=== PATIENT | female | born 1940 | race Caucasian/White ===

== ENCOUNTER 2024-03-10 11:11 | Emergency (ER) | payer OTHER, SELFPAY ==
[2024-03-10 11:16] VITALS: BP 127/66; BMI 18.9
[2024-03-10 11:36] LABS: % Basophils 0.4 % (0-2); % Eosinophils 0.3 % (0-6); % Immature Granulocytes 0.4 % (0-0.5); % Lymphocytes 21.9 % (20.5-51.1); % Monocytes 8.4 % (1.7-9.3); % Neutrophils 68.6 % (42.2-75.2); Absolute Lymphocytes 1.7 10^3/uL (1.2-3.4); Absolute Monocytes 0.6 10^3/uL (0.1-0.6); Absolute Neutrophils 5.2 10^3/uL (1.4-6.5); Hematocrit 41.8 % (37.0-47.0); Mean Corp Hgb Conc. 33.5 g/dL (33.0-37.0); Mean Corpuscular Hgb 31.3 pg (27.0-31.0); Mean Corpuscular Volume 93.3 fL (81.0-99.0); Mean Platelet Volume 9.7 fL (7.4-10.4); Nucleated Red Blood Cells % 0 %; Platelet Count 176 10^3/uL (130-400); Red Blood Cell Count 4.48 10^6/uL (4.20-5.40); Red Cell Dist. Width 13.2 % (11.5-14.5); White Blood Cell Count 7.6 10^3/uL (4.8-10.8)
[2024-03-10 11:46] LABS: ALT (SGPT) 18 U/L (0-35); AST (SGOT) 52 U/L (14-36); Albumin 4.2 g/dl (3.5-5.0); Alkaline Phosphatase 66 U/L (38-126); Blood Urea Nitrogen 22 mg/dl (7-17); Calcium 9.4 mg/dl (8.4-10.2); Carbon Dioxide 30 mmol/L (22-30); Chloride 104 mmol/L (98-107); Estimated Creatinine Clearance 58 ml/min; Glucose 98 mg/dl (70-99); Potassium 3.4 mmol/L (3.5-5.1); Sodium 138 mmol/L (135-145); Total Bilirubin 2.5 mg/dl (0.2-1.3); Total Protein 6.2 g/dl (6.3-8.2); eGFR > 60.00
--- NOTE | 2024-03-10 11:46 | ED.GENMED ---
History of Present Illness
General
Chief Complaint: Fall
Source: patient and records
Exam Limitations: none
Time Seen by Provider: 03/10/24 11:16
Nursing documentation reviewed up to this point in time: agreed with
Travel History
Have you had any contact with someone who has COVID-19?: No
Do you have any symptoms of coronavirus? Fever > 100 degrees, chills, cough, shortness of breath, sore throat, loss of taste or smell, muscle aches, or headache?: No
History of Present Illness
History of Present Illness:
83-year-old female via EMS apparently found on the ground sitting on her buttock at her apartment she is not sure how she got down she also she is hungry would like to go home she has been admitted previously [facility]
with RVR looks like she is on Eliquis, patient has no complaints physically no headache no chest pain or shortness of breath no fever chills no trouble urinating
prior records reviewed, in summary
Presented 08/09/2023 with unwitnessed fall
rhabdomyolysis, CPK 6600
UTI
Paroxysmal atrial fibrillation with rapid ventricular response 08/09/2023, appears to be new diagnosis
Non-MD troponin elevation, 0.145
Abnl LFTs
CLL (chronic lymphocytic leukemia) in remission, Dr. Zeng
GERD
Osteoporosis
DJD
Hyperparathyroidism
status post partial parathyroidectomy 2019Glaucoma with cataracts lens placements, extractions
Late onset Alzheimer dementia
Osteoporosis
Dyslipidemia
Urinary incontinence
Various cosmetic surgeries
Phy Exam
Physical Exam
Physical Exam:
Physical Exam
General: no apparent distress, not acutely ill
Neck: No tongue bite no posterior neck pain question subtle left facial
Heart: Regular
Lungs: no acute respiratory distress. clear bilaterally
Abdomen: Nontender
Neuro: Oriented x 3 moves all extremities
Skin: no rash
Psychiatric: well kept. interactive and cooperative
Extremities: No pain with range of motion of the hips
Course
Orders/Labs/Results
Orders:
Orders
03/10/24 11:21
Complete Blood Count/With Diff Urgent
Comprehensive Metabolic Panel Urgent
Creatine Phosphokinase Urgent
Comment: ADDED
Troponin I Urgent
03/10/24 11:24
EKG [Electrocardiogram (*1)] Urgent
Reason for Study: Vertigo / Dizzy
EKG- Treatment ONCE
03/10/24 11:40
CT Cervical Spine W/o Iv Contr Urgent
Comment:
Reason For Exam: fall
CT Head W/o Iv Contrast Urgent
Comment:
Reason For Exam: ? trauma
03/10/24 11:45
CR Chest - 2 Views Urgent
Comment:
Reason For Exam: found down
03/10/24 11:47
Urinalysis Reflex To Culture Urgent
03/10/24 11:48
Add On- LAB Urgent
Tests Added?: cpk
Abnormal Lab Results
03/10/24
11:21
MCH 31.3 H pg
(27.0-31.0)
Potassium 3.4 L mmol/L
(3.5-5.1)
BUN 22 H mg/dl
(7-17)
Total Bilirubin 2.5 H mg/dl
(0.2-1.3)
AST 52 H U/L
(14-36)
Creatine Kinase 1370 H U/L
(30-135)
Total Protein 6.2 L g/dl
(6.3-8.2)
03/10/24 11:21
03/10/24 11:21
Vital Signs
Initial and Last Documented VS:
Initial Vital Signs
Temp Pulse Resp Pulse Ox
98.4 F 81 18 95
03/10/24 11:14 03/10/24 11:14 03/10/24 11:14 03/10/24 11:14
Last Documented Vital Signs
Temp Pulse Resp BP Pulse Ox
98.4 F 71 11 127/66 98
03/10/24 11:14 03/10/24 11:30 03/10/24 11:30 03/10/24 11:16 03/10/24 11:30
MDM/Problems Addressed
Differential Diagnosis Includes:
Deconditioning electrolyte abnormality arrhythmia occult head trauma cervical spine trauma trip and fall
MDM/Problems Addressed:
Patient on the ground
Chronic conditions affecting care: HTN and Arrhythmia
Acute Exacerbation and/or Progression of Chronic Illness: HTN and Arrhythmia
*Radiology
Radiology exam reviewed: preliminary read by ED provider
*Pulse Oximetry
Patient hypoxic: no
*EKG
Interpreted by ED Provider?: Yes
Interpretation: normal
Comparison EKG: no comparison EKG present
Heart Rate: 78
Rate: normal
Rhythm: sinus
Ischemia: no ischemia
*Spanisher Interpretation
Rate: Spanisher- N/A
*Critical Care Note
Total Time (30-74mins, 75-104mins- exclusive of procedures): Not Applicable
Data Reviewed
Review of Other/Old Records Reveals: Labs, Records and Progress Notes
Source: patient and records
Update Note
Update Note:
Update labs are noted, EKG noted looks to be a sinus rhythm, CT of the head cervical spine to be completed report of which are pending, no obvious abnormality on my preliminary review
ED Attending Note
-
Portions of this chart may have been created with voice recognition software.� Occasional wrong word or��sound alike� substitutions may have occurred due to the inherent limitations of voice recognition software.
Discharge Plan
Departure
Prescriptions:
No Action
simvastatin 20 MG tablet
20 mg PO Q48H
Hold Instructions: Resume on 08/24/23. Hold till improvement in Liver function noted.
latanoprost 0.005 % drops
1 drp BOTH EYES HS
dorzolamide-timolol 22.3-6.8 mg/mL drops
1 drp BOTH EYES BID
risedronate 150 mg tablet
150 mg PO MONTHLY
Eliquis 2.5 mg Tablet
2.5 mg PO BID Qty: 60 0RF
metoprolol tartrate 25 mg Tablet
12.5 mg PO BID 30 Days Qty: 30 0RF
Referrals:
Radha Aguilera MD [Family Provider] -
Interventions
Interventions:
ED-Musculoskeletal Assessment Last Done: 03/10/24 11:18
ED- Neurological Assessment Last Done: 03/10/24 11:18
ED-Skin Assessment Last Done: 03/10/24 11:18
Discharge Date and Time
Print Language: GREENLANDIC
[2024-03-10 11:57] LABS: Troponin I 0.017 ng/ml
[2024-03-10 12:00] VITALS: BP 129/67
[2024-03-10 12:10] LABS: Creatine Phosphokinase 1370 U/L (30-135)
[2024-03-10 12:52] VITALS: BP 127/70
[2024-03-10] MEDS: NSS 1000 IV (12:54)
[2024-03-10 13:00] VITALS: BP 136/70
[2024-03-10 14:00] VITALS: BP 139/65
== END 2024-03-10 15:06 | disposition home or self-care (01) ==
LOC: EMR 11:11
PROVIDERS: EMERGENCY PHYSICIAN Emergency Medicine; FAMILY PHYSICIAN Internal Medicine
DX: S40.212A Abrasion of left shoulder, initial encounter (principal); W19.XXXA Unspecified fall, initial encounter; I10 Essential (primary) hypertension; I48.0 Paroxysmal atrial fibrillation
CPT/HCPCS: 99285; 96360; 70450; 71046; 72125; 80053; 82550; 84484; 85025; 93005

== ENCOUNTER 2024-06-13 13:49 | Inpatient (IN) | payer OTHER, SELFPAY ==
[2024-06-13] VITALS (11 sets, daily range): BP systolic 107–143; BP diastolic 58–84; PULSE 77; O2SAT 98; BMI 18.9
[2024-06-13 09:26] LABS: % Basophils 0.1 % (0-2); % Eosinophils 0.1 % (0-6); % Immature Granulocytes 0.5 % (0-0.5); % Lymphocytes 11.2 % (20.5-51.1); % Monocytes 7.4 % (1.7-9.3); % Neutrophils 80.7 % (42.2-75.2); Absolute Immature Granulocytes 0.1 10^3/uL (0-0.05); Absolute Lymphocytes 1.6 10^3/uL (1.2-3.4); Absolute Neutrophils 11.4 10^3/uL (1.4-6.5); Hematocrit 43.3 % (37.0-47.0); Hemoglobin 15.2 g/dL (12.0-16.0); Mean Corp Hgb Conc. 35.1 g/dL (33.0-37.0); Mean Corpuscular Hgb 31.6 pg (27.0-31.0); Nucleated Red Blood Cells % 0 %; Platelet Count 187 10^3/uL (130-400); Red Blood Cell Count 4.81 10^6/uL (4.20-5.40); Red Cell Dist. Width 13.2 % (11.5-14.5); White Blood Cell Count 14.1 10^3/uL (4.8-10.8)
[2024-06-13 09:29] LABS: Urine Albumin 1+ (Neg - Trace); Urine Bilirubin Negative (Negative); Urine Character Very Cloudy (Clear); Urine Color Yellow; Urine Glucose Negative (Negative); Urine Ketone 2+ (Negative); Urine Leukocyte 2+ (Negative); Urine Nitrite Negative (Negative); Urine Occult Blood 4+ (Negative); Urine Specific Gravity 1.025 (<1.030); Urine Urobilinogen Negative (Neg - 1+)
[2024-06-13 09:36] LABS: ALT (SGPT) 31 U/L (0-35); AST (SGOT) 102 U/L (14-36); Albumin 4.9 g/dl (3.5-5.0); Alkaline Phosphatase 70 U/L (38-126); Blood Urea Nitrogen 30 mg/dl (7-17); Carbon Dioxide 27 mmol/L (22-30); Chloride 98 mmol/L (98-107); Estimated Creatinine Clearance 58 ml/min; Glucose 122 mg/dl (70-99); Potassium 4.2 mmol/L (3.5-5.1); Sodium 134 mmol/L (135-145); eGFR > 60.00
[2024-06-13 09:46] LABS: Creatine Phosphokinase 3136 U/L (30-135)
--- NOTE | 2024-06-13 09:52 | ED.GENMED ---
History of Present Illness
General
Chief Complaint: Fall
Source: patient, ambulance crew and [facility]
Exam Limitations: dementia
Time Seen by Provider: 06/13/24 08:59
Nursing documentation reviewed up to this point in time: agreed with
History of Present Illness
History of Present Illness:
83-year-old female with Mitchell history of dementia, hyperlipidemia, hyperparathyroidism presenting to the emergency department after being found down in her independent living apartment and [facility]. She had bruising to her face had
difficulty with ambulating was sent to the ER. She denies having any of the fall and does not remember the events that occurred before or after. She had no awareness of how long she was on the ground. She is on Eliquis.
Review of Systems
Review of Systems
Allergies reviewed?: Yes
All Other Systems: ROS reviewed and negative except as documented in HPI and ROS
Phy Exam
Physical Exam
Physical Exam:
GENERAL: Alert , in no apparent distress
EYE: pupils equal and reactive
NECK: Supple, no significant adenopathy.
ENT: Patient has bruising and swelling throughout her face mainly surrounding the right orbital region small to the left eyelids. Some bruising to the right cheek. o/p clr, mmm.
CARDIAC: Regular rate and rhythm .
LUNGS: Clear breath sounds bilaterally, no acute respiratory distress, no wheezes/rales/rhonchi
ABDOMEN: Soft, without focal tenderness, no r/g, no cvat
NEUROLOGICAL: Alert moving all extremities no focal neuro deficits
SKIN: Warm and dry, skin intact.
MUSCULOSKELETAL: Swelling discomfort to the left wrist the right forearm the left knee increased discomfort with movement of the left wrist on the left knee. Some swelling discomfort to the right hip. It removed the right hip., well perfused.
PSYCH: Normal and appropriate interaction.
Course
Orders/Labs/Results
Orders:
Orders
06/13/24 08:58
EKG [Electrocardiogram (*1)] Urgent
Reason for Study: Other
Other Reason for Exam: confusion
EKG- Treatment ONCE
06/13/24 09:14
CBC/With Diff [Complete Blood Count/With Diff] Urgent
CMP [Comprehensive Metabolic Panel] Urgent
CPK [Creatine Phosphokinase] Urgent
Lactic Acid Urgent
Urinalysis Reflex To Culture Urgent
Date Specimen was Collected: 06/13/24
Time Specimen was Collected: 08:53
Urine Microscopic Reflex Cult Urgent
Urine Culture Urgent
DIANNA Source: U
Specimen Description:
Date Specimen was Collected: 06/13/24
Time Specimen was Collected: 08:53
06/13/24 09:15
CT Cervical Spine W/o Iv Contr Urgent
Comment:
Reason For Exam: fall neck pain
CT Facial Bones W/o Iv Contras Urgent
Comment:
Reason For Exam: fall hit face
CT Head W/o Iv Contrast Urgent
Comment:
Reason For Exam: fall head injury on [facility]
CR Shoulder, Trauma - Right Urgent
Comment:
Reason For Exam: right shoulder pain afterfall
CR Wrist - Left Min 3 Views Urgent
Comment:
Reason For Exam: fall wrist pain
CR Wrist - Right Min 3 Views Urgent
Comment:
Reason For Exam: fall wrist [ain
Hip, Right 2-3 Views [CR Hip - RT w/wo Pel 2-3 Vw*] Urgent
Comment:
Reason For Exam: fall right hip pain
Include a pelvis x-ray?: Yes
Knee, Left 4 or More Views [CR Knee - Left 4 Or More View*] Urgent
Comment:
Reason For Exam: fall knee pain
Knee, Right 4 or More Views [CR Knee- Right 4 Or More View*] Urgent
Comment:
Reason For Exam: fall knee pain
06/13/24 09:55
CR Elbow - Right Min 3 Views Urgent
Comment:
Reason For Exam: fall ebow pain
06/13/24 11:36
Creatine Phosphokinase Urgent
06/13/24 12:12
CefTRIAXone [Rocephin] 1,000 mg IV NOW STA
Pt Eval And Treat Urgent
Activity Level: Ambulate
06/13/24 12:29
Tetanus/Diphth/Acelpertussis [Adacel] 0.5 ml IM .ONCE ONE
Abnormal Lab Results
06/13/24
09:14
WBC 14.1 H 10^3/uL
(4.8-10.8)
MCH 31.6 H pg
(27.0-31.0)
Abs Immat Gran (auto) 0.1 H 10^3/uL
(0-0.05)
Absolute Neuts (auto) 11.4 H 10^3/uL
(1.4-6.5)
Absolute Monos (auto) 1.0 H 10^3/uL
(0.1-0.6)
Neutrophils % 80.7 H %
(42.2-75.2)
Lymphocytes % 11.2 L %
(20.5-51.1)
Sodium 134 L mmol/L
(135-145)
BUN 30 H mg/dl
(7-17)
Glucose 122 H mg/dl
(70-99)
Total Bilirubin 3.0 H mg/dl
(0.2-1.3)
AST 102 H U/L
(14-36)
Creatine Kinase 3136 H U/L
(30-135)
Urine Ketones 2+ A
(Negative)
Ur Occult Blood Reflex 4+ A
(Negative)
Leukocyte Esterase Rfl 2+ A
(Negative)
Urine RBC 3-6 A /HPF
(0-2)
Urine WBC (Reflex) >100 A /HPF
(0-5)
Urine Bacteria (Reflex) Many A
(Negative)
Urine Albumin (Reflex) 1+ A
(Neg - Trace)
06/13/24 09:14
06/13/24 09:14
Vital Signs
Initial and Last Documented VS:
Initial Vital Signs
Temp Pulse
97.7 F 77
06/13/24 08:42 06/13/24 08:42
Last Documented Vital Signs
Temp Pulse Resp BP Pulse Ox
97.7 F 65 12 139/84 95
06/13/24 08:42 06/13/24 09:31 06/13/24 10:28 06/13/24 10:28 06/13/24 10:28
MDM/Problems Addressed
MDM/Problems Addressed:
83-year-old female presenting to the emergency department after an unwitnessed fall was found the ground today by staff. She does not remember the fall and does have dementia. She has swelling mainly to the right side of her face and around her
right eye her left wrist and hand also are swollen the right elbow has a skin tear but able to range fully normally. Also swelling discomfort to the left knee. X-rays obtained of the bilateral wrists left knee right shoulder right elbow apparent
fracture of the hook of the hamate on the left side placed in an ulnar gutter splint but otherwise no emergent fractures. Patient's creatinine kinase elevated to 3000 patient also may potentially have a urinary tract infection with large amount of
white blood cells and bacteria plan to give dose of antibiotics plan to admit to observe overnight considering multiple injuries potential pending rhabdomyolysis was given a liter of fluid stable throughout ER stay.
*Critical Care Note
Total Time (30-74mins, 75-104mins- exclusive of procedures): Not Applicable
ED Attending Note
-
Portions of this chart may have been created with voice recognition software.� Occasional wrong word or��sound alike� substitutions may have occurred due to the inherent limitations of voice recognition software.
Discharge Plan
Departure
Patient Disposition: Admit
Date of Disposition: 06/13/24
Time of Disposition: 13:12
Admit to: Med/Surg
Admit to doctor: Mateo
Presentation/result/management discussed w/ accepting MD/DO: Hospitalist
Patient with high blood pressure during this ER visit?: No
Condition: Good
Covid-19: Not Applicable
Discharge Problem:
Rhabdomyolysis, Closed fracture of hamate of left wrist, Fall
Prescriptions:
No Action
simvastatin 20 MG tablet
20 mg PO Q48H
latanoprost 0.005 % drops
1 drp BOTH EYES HS
dorzolamide-timolol 22.3-6.8 mg/mL drops
1 drp BOTH EYES BID
risedronate 150 mg tablet
150 mg PO MONTHLY
Eliquis 2.5 mg Tablet
2.5 mg PO BID Qty: 60 0RF
metoprolol tartrate 25 mg Tablet
12.5 mg PO BID 30 Days Qty: 30 0RF
Referrals:
Radha Aguilera MD [Family Provider] -
Interventions
Interventions:
*Risk Screen - Suicide Last Done: 06/13/24 08:42
*General Assessment Last Done: 06/13/24 08:42
*Neglect/Abuse Screening Last Done: 06/13/24 08:42
ED-Musculoskeletal Assessment Last Done: 06/13/24 09:33
ED- Neurological Assessment Last Done: 06/13/24 09:33
ED-Skin Assessment Last Done: 06/13/24 09:33
Discharge Date and Time
Print Language: SOMALI
[2024-06-13 10:05] LABS: Urine Bacteria Many (Negative); Urine Granular Cast 0-2 /LPF (0); Urine White Cell >100 /HPF (0-5)
--- NOTE | 2024-06-13 10:33 | PHANOTE ---
Addendum entered by Re Casas 06/13/24 13:54:
called [facility] but patient is independent living there. she has a personal care person that comes to the apartment to help patient but no one knows what company shr works for. called son at [phone] but he does not live in [place] or help the
patient.
Original Note:
med rec note- try to call son due to fact patient is not well and has been on the floor for awhile and ecw has the son going to most of her appointment. ecw also mention she might have an aid outside of [facility] but didn't not mention who they
work for. called son on file but the number disconnected and does not work.
--- NOTE | 2024-06-13 13:00 | HPS.HSE ---
Family Physician
-
Family Physician: Radha Aguilera
Chief Complaint
-
found down
History of Present Illness
83 year old with PMH for demential, HLD, hyperparathyroidism, atrial fib presented to us with Manish after should was found down by the staff. patient is poor historian. does not remember about the fall. she denied any acute pain. noted a laceration
on right eye brow. left arm in caste. noted multiple bruise and repeat as skin tear on b/l LE knee.
Noted elevated CK, UTI in ER. received ceftriaxone in ER. admitting for further management.
Medical History
Past Medical History
Past Medical History: Reports Other
Additional Past Medical History:
hyperparathyroidism
osteoarthritis
depression
HLD
CLL
osteo
GERD
Past Surgical History: Reports Other
Additional Past Surgical History:
b/l cataract surgery
left oophorectomy
cosmetic facial surgery
abdominoplasty
b/l breast lift and right berate reduction
parathyroidectomy
Social History
Unable to obtain full social history at this time due to: Dementia
Family History
Family History: Not pertinent
Allergies / Home Medications
Allergies reflects when Allergies were last updated in [employer].
Home Medications with original date entered in [employer]
Allergy/Medication List:
Allergies
Allergy/AdvReac Type Severity Reaction Status Date / Time
amoxicillin Allergy Unknown Verified 06/13/24 08:42
Choline Allergy Cholinesterase Uncoded 06/13/24 08:42
Deficiency
Home Medications
simvastatin 20 mg tablet 20 mg PO Q48H High Cholesterol 11/02/18
dorzolamide 22.3 mg-timolol 6.8 mg/mL eye drops 1 drp BOTH EYES BID Eye Condition 08/09/23
latanoprost 0.005 % eye drops 1 drp BOTH EYES HS Eye Condition 08/09/23
risedronate 150 mg tablet 150 mg PO MONTHLY Mental Health/Anxiety 08/09/23
apixaban 2.5 mg tablet (Eliquis) 2.5 mg PO BID #60 tabs 08/10/23
metoprolol tartrate 25 mg tablet 12.5 mg (1/2 x 25 mg) PO BID 30 days #30 tabs 08/12/23
Review of Systems
-
Constitutional: Reports No Symptoms
EENT: Reports No Symptoms
Respiratory: Reports No Symptoms
Cardiac: Reports No Symptoms
Abdomen/GI: Reports No Symptoms
: Reports No Symptoms
Musculoskeletal: Reports No Symptoms
Skin: Reports No Symptoms
Neurological: Reports No Symptoms
Endocrine: Reports No Symptoms
Hematologic/Lymphatic: Reports No Symptoms
Psych: Reports No Symptoms
Physical Exam
Vital Signs
Vital Signs
Temp Pulse Resp BP Pulse Ox
97.7 F 65 12 139/84 95
06/13/24 08:42 06/13/24 09:31 06/13/24 10:28 06/13/24 10:28 06/13/24 10:28
Physical Exam
General: Well Developed, Well Nourished and No Apparent Distress
HEENT: NormoCephalic, Moist mucous membranes and Atraumatic
Respiratory: Clear
Cardiac: S1/S2 and Regular Rhythm; No Murmur or Rub
GI: Soft, Non Tender, Non Distended and Normal Bowel Sounds; No Organomegaly
Rectal: Deferred by Provider
Musculoskeletal: No Clubbing, No Cyanosis and No Edema
Skin: Other (multiple skin tear b/l LE, right brow laceration); No Rash
Neuro: Nonfocal/grossly intact
Laboratory Results
-
06/13/24 09:14
06/13/24 09:14
Laboratory Results
Lactic Acid 2.0 mmol/L (0.7-2.0) 06/13/24 09:14
Total Bilirubin 3.0 mg/dl (0.2-1.3) H 06/13/24 09:14
AST 102 U/L (14-36) H 06/13/24 09:14
ALT 31 U/L (0-35) 06/13/24 09:14
Alkaline Phosphatase 70 U/L (38-126) 06/13/24 09:14
Data Reviewed
-
Diagnostic Radiology: Report Reviewed by me
CT Scan: Report Reviewed by me
Lab Data: Labs Reviewed by me
Impression/Plan
-
# Rhabdo likely from fall
-CK 3136
-CT head, face/neck Right frontoparietal scalp and right periorbital hematomas. No retrobulbar hematoma or globe injury. No calvarial fracture.
-cervical spine CT negativ
-Elbow x-ray with no acute abnormality
-Wrist x-ray negative
-Shoulder x-ray negative
-Right knee x-ray with Tricompartmental osteoarthritis.
-Left knee x-ray negative
-Hip x-ray negative for acute fractures
-fluids continued
-trend CK level
-PT/OT
# Urinary tract infection
-WBC 14.1, afebrile
-ceftriaxone continued
# Left wrist fracture from fall/ multiple skin tear, laceration
-Left wrist x-ray with impression of Suspected fracture of the hook of the hamate bone, only seen on lateral projection.
-CAST in place
#paroxysmal atrial fibrillation
-EKG with NSR
-metoprolol and eliquis continued
#Abnormal LFTs
�- Suspect that this is due to muscle breakdown / rhabdo as noted above.
�
#Chronic lymphocytic leukemia
-Follows with Dr. Castro
#Senile Dementia
#DVT Prophylaxis:� Eliquis
#PT/OT SNF. CM for placement.
#Code Status:� Full
[2024-06-13] MEDS: ROCEPHIN 1000 MG IV (13:03)
[2024-06-13] MEDS: ADACEL 0.5 ML IM (13:04)
--- NOTE | 2024-06-13 16:34 | W.PN.UPDATE ---
Update Note
Progress Note Update
83 female history of dementia hyperlipidemia hyperparathyroidism atrial fibrillation on anticoagulation from [facility] after being found down by staff. Poor historian. Does not remember fall. Laceration over right. Left arm in cast
as she was found to have a hook of hamate fracture.
Trauma workup completed demonstrating
-CT cervical spine without contrast no acute osseous abnormalities of cervical spine or anterior lateral changes.
-CT facial bones no acute facial bone fracture
-CT head no acute intracranial abnormality
-Hip x-ray no acute radiographic abnormality
-Bilateral knee x-ray no acute radiographic abnormality
-Right shoulder x-ray no acute osseous abnormalities stable severe degenerative changes at the right glenohumeral joint
-Wrist x-ray left suspected fracture of hook of hamate bone only seen on lateral projection
-Wrist x-ray right no acute radiographic abnormality
-Right elbow x-ray no acute osseous abnormality of the right elbow
Hemodynamically stable. CBC with a white count of 14.1, coags within normal, BMP sodium 134, glucose 122, bili 3.0, AST 102, creatinine kinase 3136, urine 2+ ketones, occult blood positive for plus, yellow 3�6 RBC
Urinary tract infection, baseline dementia unclear if she has symptoms or not, urine analysis demonstrating leuk site esterase, white blood cells, many bacteria, follow-up on urine culture, Rocephin
Acute rhabdomyolysis secondary to fall being found down on ground unknown downtime. IV fluids. Daily CK. Fall precautions. Renal function not affected at this time will monitor creatinine closely.
Transaminitis likely related to acute rhabdo. Will follow. If getting worse will obtain GGT, right upper quadrant ultrasound and hepatitis panel at that time
Atrial fibrillation on apixaban 2.5 mg p.o. twice daily. Will hold this at this time. We will need to have a discussion with family if this should be continued. I attempted to call son multiple times however phone call not going through. We will
discuss this with social work to see if we can get a different number for him.
Hyperlipidemia continue statin
Dementia continue donepezil. Delirium precautions.
Vitamin D deficiency continue cholecalciferol 25 mcg daily
[2024-06-13] MEDS: NSS 1000 IV ×2 (16:59→23:32)
--- NOTE | 2024-06-13 17:00 | PTCARENOTE ---
1644 Pt removed left wrist splint. Unable to replace splint. DR. Galindo here to see pt and aware. Place torri wrap to left wrist. Dr. Galindo consulted orthopedic. DR. Galindo ordered mitts to prevent removing torri wrap. Place Mitt to right hand. Explain to
pt,continue to monitor pt closely.
[2024-06-13] MEDS: LOPRESSOR 12.5 MG PO (19:16)
[2024-06-13] MEDS: ELIQUIS 2.5 MG PO (19:16)
--- NOTE | 2024-06-13 19:42 | W.PN.UPDATE ---
Update Note
Progress Note Update
Floor nurse notified house provider of afib rvr. Patient with known afib history.
Plan:
- STAT EKG
- Metoprolol 5mg IV 1x now, ineffective in rate control
- Diltiazem 5mg IV push with Diltiazem gtt started
- Magnesium in AM
[2024-06-13] MEDS: LOPRESSOR 5 MG IV (19:45)
[2024-06-13] MEDS: COSOPT EYE DROPS 1 DROP BOTH EYES (21:26)
[2024-06-13] MEDS: XALATAN OPHTHALMIC SOLUTION 1 DROP BOTH EYES (21:26)
[2024-06-13] MEDS: LIPITOR PO (21:46)
[2024-06-14] VITALS (8 sets, daily range): BP systolic 102–154; BP diastolic 51–87; BMI 18.9
--- NOTE | 2024-06-14 00:09 | PTCARENOTE ---
Addendum entered by Fouzia Blanco RN 06/14/24 05:41:
Over night Pt HR continued to be in the 150s-160s, cardizem gtt ordered by provider and started per protocol. At approx 0530 pt. was noted to have converted back into NSR with HR in the 70s-80s. VSS at this time, will continue to monitor.
Original Note:
During change of shift, pt. noted to be in rapid afib w/ HR in the 180s-200s. Prior to this event pt. had been in NSR, HR 70s-80s. Provider notified, one time dose of IV lopressor ordered and administered per protocol. Pt. HR eventually decreased.
Pt. is currently in afib on the monitor with HR 100s-110s. Provider made aware, will continue to monitor.
[2024-06-14] MEDS: CARDIZEM 5 MG IV (01:16)
[2024-06-14] MEDS: CARDIZEM 125 IV ×2 (03:00→20:44)
[2024-06-14] MEDS: NSS 1000 IV ×2 (05:59→12:54)
--- NOTE | 2024-06-14 07:10 | CON.ORTHO ---
Consultation
-
Date/Time Consultation Requested: June 08/1651
Date/Time Consultation Performed: June 08/0645
Requesting Provider: HUSSAIN Aguirre
Performing Provider: Fran for Aurelio
Reason for Consultation: Left wrist Fx
Consultation - Orthopedics
History
Dictation#[id number]
Requested in consult to this 83 y/o white female with PMH of A-fib on Eliquis, dementia, hyperlipidemia, hyperparathyroidism who was found on the ground at her independent living facility, [facility]. Events leading up to the fall aren't clear.
She doesn't know how long she was on the floor. She had some difficulty ambulating therefore she was transported here to [facility]. All xray studies were unremarkable except for what appears to be a hamate fracture on the lateral view of her left wrist
films. We have been requested in consult
Allergies / Home Medications
Allergy/AdvReac Type Severity Reaction Status Date / Time
amoxicillin Allergy Unknown Verified 06/13/24 08:42
Choline Allergy Cholinesterase Uncoded 06/13/24 08:42
Deficiency
�Medication �Instructions �Recorded
simvastatin 20 mg tablet 20 mg PO MOWEFR@1900 High 11/02/18
Cholesterol
dorzolamide 22.3 mg-timolol 6.8 1 drp BOTH EYES BID Eye Condition 08/09/23
mg/mL eye drops
latanoprost 0.005 % eye drops 1 drp BOTH EYES HS Eye Condition 08/09/23
apixaban 2.5 mg tablet (Eliquis) 2.5 mg PO BID #60 tabs 08/10/23
cholecalciferol (vitamin D3) 25 25 mcg PO DAILY 06/13/24
mcg (1,000 unit) tablet (Vitamin
D3)
donepezil 10 mg tablet 10 mg PO HS 06/13/24
Vital Signs / Lab Results
Temp Pulse Resp BP Pulse Ox
97.8 F 110 16 121/65 97
07/29/24 23:06 06/14/24 03:25 06/14/24 03:25 06/14/24 03:25 06/14/24 03:25
Assessment / Plan
PE: In bed. splint bedside. SUEE torri wrapped. AAO x 1 this AM. Limited participation in exam yielded some pain over the carpal rows. No pain over the distal radius or ulnar styloid. Able to wiggle fingers. Radial pulse palpable. TON ARGUETA
Xrays: Left wrist xrays with likely hamate hook fracture on lateral view
Impression: SAMY
Plan: I explained to the patient that she has a broken bone in her wrist. She acknowledged this. Have ordered a volar wrist brace to the patient as she did not tolerate the splint well. We will see if this is better tolerated. NWB and no lifting
with LUE if able to follow directions. Ice to left wrist and hand. Follow-up outpatient in 2 weeks for repeat xrays. Ortho to sign off for now. Please re-engage with any pertinent questions during her admission.
[2024-06-14] MEDS: COSOPT EYE DROPS 1 DROP BOTH EYES ×2 (07:58→20:26)
[2024-06-14] MEDS: LOPRESSOR 12.5 MG PO ×2 (07:59→20:26)
[2024-06-14] MEDS: ELIQUIS 2.5 MG PO ×2 (07:59→20:26)
[2024-06-14 08:13] LABS: Hematocrit 34.3 % (37.0-47.0); Hemoglobin 11.5 g/dL (12.0-16.0); Mean Corp Hgb Conc. 33.5 g/dL (33.0-37.0); Mean Corpuscular Hgb 30.9 pg (27.0-31.0); Mean Corpuscular Volume 92.2 fL (81.0-99.0); Mean Platelet Volume 10.9 fL (7.4-10.4); Platelet Count 150 10^3/uL (130-400); Red Blood Cell Count 3.72 10^6/uL (4.20-5.40); Red Cell Dist. Width 13.4 % (11.5-14.5); White Blood Cell Count 9.4 10^3/uL (4.8-10.8)
[2024-06-14 09:34] LABS: ALT (SGPT) 23 U/L (0-35); AST (SGOT) 54 U/L (14-36); Albumin 2.8 g/dl (3.5-5.0); Alkaline Phosphatase 52 U/L (38-126); Blood Urea Nitrogen 25 mg/dl (7-17); Calcium 7.8 mg/dl (8.4-10.2); Carbon Dioxide 23 mmol/L (22-30); Chloride 109 mmol/L (98-107); Creatine Phosphokinase 1028 U/L (30-135); Estimated Creatinine Clearance 61 ml/min; Glucose 88 mg/dl (70-99); Magnesium 2.1 mg/dl (1.6-2.3); Potassium 3.3 mmol/L (3.5-5.1); Sodium 134 mmol/L (135-145); Total Bilirubin 1.6 mg/dl (0.2-1.3); Total Protein 4.5 g/dl (6.3-8.2); eGFR > 60.00
--- NOTE | 2024-06-14 09:41 | CM ---
Addendum entered by Roya Deluna 06/14/24 10:33:
Spoke to Carlos no beds available at [facility] this week. Referral also placed for [facility] & notified Neida. PRATIK completed.
Original Note:
Patient chart reviewed by CM.
Dx: Fall; Rhabdo
PMH: Dementia, HDL, hyperthyroidism, afib, osteoarthritis, GERD, CLL
Pt lives in idependent living at [facility].
PLOF: walker
PT recommends SNF
Spoke to son Lenny today and he states he had already started the process of getting her into [facility].
Had met with Angi and would like the patient to go to [facility] for skilled/LTC.
Authorization needed/[employer].
PCP: Radha Aguilera
Pharmacy: [facility]
PLAN: Discharge when stable. [facility] - referral placed in [facility]
--- NOTE | 2024-06-14 10:16 | PN.CDI ---
CDI
- -
CDI:
Physician Documentation Request
Admit Date: 06/13/24 13:49
Dear Doctor Mateo,
Please review the following and provide your response in the progress notes.
Clinical Indicators:
PN, 06/13
#Acute rhabdomyolysis secondary to fall being found down on ground unknown downtime.
#IV fluids.
Laboratory Tests
06/13/24 06/14/24
09:14 07:13
Creatine Kinase 3136 H 1028 H D
Please clarify in your note the diagnosis associated with the above finding:
Traumatic rhabdomyolysis
Non-traumatic rhabdomyolysis
Other
Use of terms such as suspected, likely, concern for, or probable (associated with a specific diagnosis that is being evaluated, monitored, or treated as if it exists) are acceptable and can be coded in the inpatient setting, when documented at the
time of discharge.
Thank you,
Avis Christy RN BSN CCDS
CDI Specialist
please contact via tiger text
Please use your independent medical judgment in providing your response.
--- NOTE | 2024-06-14 10:23 | PN.CDI ---
CDI
- -
CDI:
Physician Documentation Request
Admit Date: 06/13/24 13:49
Dear Doctor Mateo,
Please review the following and provide your response in the progress notes.
Clinical Indicators:
PN, 06/13
#-Wrist x-ray left suspected fracture of hook of hamate bone only seen on lateral projection
09/05/22 PROCEDURE: OT Bone Density, Axial
#CLINICAL INDICATION: Patient is post-menopausal.
#IMPRESSION: Osteopenia.
Please clarify the following regarding the etiology of the left hamate bone fracture:
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
Traumatic fracture only
Other (please specify)
Type Fracture
Age-related With current pathological fx
Drug induced (specify drug) without current pathological fx
Idiopathic
Osteoporosis of disuse
Post traumatic
Post oophorectomy osteoporosis
Use of terms such as suspected, likely, concern for, or probable (associated with a specific diagnosis that is being evaluated, monitored, or treated as if it exists) are acceptable and can be coded in the inpatient setting, when documented at the
time of discharge.
Thank you,
Avis Christy RN BSN CCDS
CDI Specialist
please contact via tiger text
Please use your independent medical judgment in providing your response.
[2024-06-14 10:27] LABS: Hemoglobin 11.3 g/dL (12.0-16.0)
--- NOTE | 2024-06-14 10:35 | PN.CDI ---
CDI
- -
CDI:
Physician Documentation Request
Admit Date: 06/13/24 13:49
Dear Doctor Mateo,
Please review the following and provide your response in the progress notes.
Clinical Indicators:
Selected Entries
06/13/24
16:00
Pressure injury stage [Present on admission Coccyx] Stage 1
Physician documentation of the type and location of wounds is required for compliant documentation. Based on the above clinical findings and your assessment, please provide the following in your progress note:
Stage 1 pressure injury coccyx, POA
Other(please specify)
1. Location of the ulcer/wound, including laterality.
2. Type (etiology) of ulcer/wound:
- Diabetic ulcer
- Arterial (ischemic) ulcer
- Traumatic wound
- Venous stasis ulcer
- Pressure (decubitus) ulcer
3. If a pressure ulcer, please also include the stage* of the ulcer:
- Stage 1 - Skin intact, non-blanchable redness
- Stage 2 - Partial thickness loss of dermis, includes intact or open blister
- Stage 3 - Full thickness tissue not including bone, tendon or muscle
- Stage 4 - Full thickness tissue loss, including exposed bone, tendon or muscle
Use of terms such as suspected, likely, concern for, or probable (associated with a specific diagnosis that is being evaluated, monitored, or treated as if it exists) are acceptable and can be coded in the inpatient setting, when documented at the
time of discharge.
Thank you,
Avis Christy RN BSN CCDS
CDI Specialist
please contact via tiger text
Please use your independent medical judgment in providing your response.
*Source: National Pressure Ulcer Advisory Panel (NPUAP)
--- NOTE | 2024-06-14 12:12 | W.PN.HOSP.TC ---
Addendum entered and electronically signed by Tolu Galindo MD 06/14/24 16:38:
Traumatic rhabdomyolysis
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
Wound Location and type/assessment: Patient admitted with: Multiple abrasions to R temporal face, R elbow, R hip and L knee. L wrist seen by ortho and in splint with torri wrap. L knee with edema and redness, x ray negative. With assist from PCT
February, turned patient onto side, sacrum with stage 1 PI, heels boggy and blanchable. R eyebrow/temporal with dry scab, strands of hair stuck in wound. Most likely patient on floor for several hours, patient unable to recall. So far wounds appear
superficial but will need to be monitored for evolving wounds, suspect abrasions vs unstageable PI
Original Note:
Today's Communication/Plan
-
Daily CK
Daily CMP
IV fluids
Volar splint
Nonweightbearing left upper extremity
Ice left wrist and hand
Son states he sent paperwork to [email or web address]
DNR/DNI
Assessment / Plan
Assessment / Plan
Urinary tract infection, baseline dementia unclear if she has symptoms or not, urine analysis demonstrating leuk site esterase, white blood cells, many bacteria, follow-up on urine culture, Rocephin
Acute rhabdomyolysis secondary to fall being found down on ground unknown downtime. IV fluids. Daily CK. Fall precautions. Renal function not affected at this time will monitor creatinine closely.
Left hook of hamate fracture seen by orthopedics recommended nonweightbearing/no lifting with left upper extremity if able to follow directions. Ice to left wrist and hand. Repeat hand x-ray in 2 weeks. Volar splint. Outpatient follow-up.
Transaminitis likely related to acute rhabdo. Will follow. Improving on IV fluids as expected
Atrial fibrillation on apixaban 2.5 mg p.o. twice daily. Will hold this at this time.
Hyperlipidemia continue statin
Dementia continue donepezil. Delirium precautions.
Vitamin D deficiency continue cholecalciferol 25 mcg daily
Spoke with her next of kin/power of district attorney medical and durable, single living son. Agrees that DO NOT RESUSCITATE DO NOT INTUBATE. Hold Eliquis until he has further discussions with PCP. Understands increased bleeding risk especially with
falls. Understand that ff she bleeds she may have a large brain bleed. States he will talk to the PCP about this however at this time agrees with holding
Anticipated Discharge: 24 - 48 hours
Subjective/Interval History
-
Date of Service: June 14, 2024
seen and ecamined. no new complaints. no acute overniggt events
Objective Data
-
Labs:
Laboratory Results
06/14/24 06/14/24
07:13 10:16
WBC 9.4
Hgb 11.5 L D 11.3 L
Hct 34.3 L
Plt Count 150
Sodium 134 L
Potassium 3.3 L
Chloride 109 H
Carbon Dioxide 23
BUN 25 H
Creatinine 0.6
Glucose 88
Calcium 7.8 L D
Total Bilirubin 1.6 H D
AST 54 H
ALT 23
Alkaline Phosphatase 52
Vital Signs:
Vital Signs
Temp Pulse Resp BP Pulse Ox
98.0 F 82 18 124/59 97
06/14/24 07:00 06/14/24 07:00 06/14/24 07:00 06/14/24 07:00 06/14/24 07:00
I&O
06/13/24 06/14/24 06/15/24
06:59 06:59 06:59
Intake Total 2240 / 2240
Balance 2240 / 2240
--- NOTE | 2024-06-14 12:35 | WOUNDNOTE ---
DEONDRE RN note: Patient admitted with rhabdomyolysis, closed fracture of L wrist s/p fall.
See H&P for complete history. From [facility].
PMH: Dementia, UTI, leukemia, osteoarthritis.
Wound Location and type/assessment: Patient admitted with: Multiple abrasions to R temporal face, R elbow, R hip and L knee. L wrist seen by ortho and in splint with torri wrap. L knee with edema and redness, x ray negative. With assist from PCT
February, turned patient onto side, sacrum with stage 1 PI, heels boggy and blanchable. R eyebrow/temporal with dry scab, strands of hair stuck in wound. Most likely patient on floor for several hours, patient unable to recall. So far wounds appear
superficial but will need to be monitored for evolving wounds, suspect abrasions vs unstageable PI.
Appetite: TBD has not eaten breakfast.
Pressure redistribution devices in place: Air overlay with adequate inflation, turning schedule and pillow under calves.
Plan: Will order honey gel and dry dressing for R eyebrow temporal wound, called [facility] for supply. Nurse Marycruz aware and will apply gel when arrives. All other wounds applied silver alginate and silicone foams. Protective foams applied to sacrum and
heels. Will confirm orders with hospitalist and updated nurse.
Updated care plan and will follow as needed.
Note to case management of equipment requested for discharge: TBD
Recommend follow up at wound care center upon discharge.
[2024-06-14] MEDS: KCL 40 MEQ PO (12:55)
[2024-06-14] MEDS: STERILE WATER FOR INJECTION 10 ML IV (13:00)
[2024-06-14] MEDS: ROCEPHIN 1000 MG IV (13:05)
[2024-06-14] MEDS: XALATAN OPHTHALMIC SOLUTION 1 DROP BOTH EYES (20:26)
[2024-06-15] VITALS (7 sets, daily range): BP systolic 123–159; BP diastolic 52–86; PULSE 76; O2SAT 95
[2024-06-15] MEDS: NSS 1000 IV ×3 (03:30→16:36)
[2024-06-15] MEDS: ELIQUIS 2.5 MG PO ×2 (07:52→20:04)
[2024-06-15 07:58] LABS: Hematocrit 31.1 % (37.0-47.0); Hemoglobin 10.3 g/dL (12.0-16.0); Mean Corp Hgb Conc. 33.1 g/dL (33.0-37.0); Mean Corpuscular Hgb 31.5 pg (27.0-31.0); Mean Corpuscular Volume 95.1 fL (81.0-99.0); Mean Platelet Volume 10.6 fL (7.4-10.4); Platelet Count 131 10^3/uL (130-400); Red Blood Cell Count 3.27 10^6/uL (4.20-5.40); Red Cell Dist. Width 13.4 % (11.5-14.5)
[2024-06-15] MEDS: COSOPT EYE DROPS 1 DROP BOTH EYES ×2 (07:58→20:38)
[2024-06-15] MEDS: LOPRESSOR 12.5 MG PO ×2 (07:58→20:03)
[2024-06-15 08:15] LABS: ALT (SGPT) 21 U/L (0-35); AST (SGOT) 40 U/L (14-36); Albumin 2.6 g/dl (3.5-5.0); Alkaline Phosphatase 48 U/L (38-126); Blood Urea Nitrogen 19 mg/dl (7-17); Calcium 7.5 mg/dl (8.4-10.2); Carbon Dioxide 23 mmol/L (22-30); Chloride 111 mmol/L (98-107); Creatine Phosphokinase 492 U/L (30-135); Estimated Creatinine Clearance 61 ml/min; Glucose 93 mg/dl (70-99); Potassium 3.7 mmol/L (3.5-5.1); Sodium 136 mmol/L (135-145); Total Bilirubin 1.3 mg/dl (0.2-1.3); Total Protein 4.3 g/dl (6.3-8.2); eGFR > 60.00
--- NOTE | 2024-06-15 08:39 | PTCARENOTE ---
MRSA swab nares + -hospitalist notified.
--- NOTE | 2024-06-15 10:19 | CON.CAR ---
Addendum entered and electronically signed by Harshal Mack MD 06/15/24 11:16:
I saw and examined the patient.
The Shift Leader's note was reviewed and I agree with the note.
Comment:
GEN: No distress, awake, Ox1
HEENT: supple, anicteric, mmm
LUNGS: CTA, no wheezes/rales
CV: Reg, S1/S2, 1/6 syst LSB, no gallop
ABD: soft, BS+, NT/ND
EXT: No edema
NEURO: Gross non-focal
SKIN: ecchymosis
PLan:
She has a past medical history of paroxysmal atrial fibrillation, dementia, CLL, who presents to [facility] status post fall at [facility]. She likely was on the floor for a period of time as was found to have rhabdomyolysis, along with a left
wrist fracture. She was found to be in rapid A-fib and started on IV Cardizem. She converted back into sinus rhythm. She has underlying dementia and was unaware of the events does not remember what happened. She denies any chest pains, shortness
of breath, or palpitations.
We will discuss this case with her son regarding risks and benefits of long-term anticoagulation. We would prefer to continue the Eliquis if possible since she is at an assisted living.
Total CK is improved. Once this is back to normal over next 24 hours would likely start low-dose amiodarone 200 mg p.o. twice daily to try and help maintain sinus rhythm.
Continue telemetry, check TSH, check echocardiogram.
Original Note:
Consultation
Consultation Request
Date/Time Consultation Performed: 06/15/24
Requesting Provider: Dr. Michelle Galindo
Performing Provider: Salima Villalba PA-C for Dr. Mack
Reason for Consultation: afib
Medical History
-
Chief Complaint: fall
History of Present Illness:
Patient is an 83-year-old female with past medical history of paroxysmal atrial fibrillation on chronic Eliquis, dementia, chronic lymphocytic leukemia, hyperparathyroidism status post parathyroidectomy who presented to [facility] from her
assisted living apartment at [facility] due to a fall. She does not recall the events surrounding the fall. She was noted to have a left wrist fracture with plan for conservative management per orthopedics. Also noted to be in rhabdo on arrival as
well as concern for a UTI. Cardiology consulted as overnight patient was noted to go into atrial fibrillation with rapid ventricular response. She was started on IV Cardizem drip and fortunately she converted to sinus rhythm around 5:30 AM and
remains in sinus rhythm at this time. Due to bruising and skin tears from fall, primary service stopped outpatient Eliquis 2.5 mg twice daily. Cardiology consulted for evaluation and management of atrial fibrillation.
PMH:
PAF
chronic OAC with eliquis
dementia
CLL
hyperparathyroidism status post parathyroidectomy in 2019
HLD
Past Medical History
Past Medical History: Other (in HPI)
Social History
Living: Assisted Living ([facility])
Family History
Family History: Unable to Obtain
Allergies / Home Medications
Allergy/AdvReac Type Severity Reaction Status Date / Time
amoxicillin Allergy Unknown Verified 06/13/24 08:42
Choline Allergy Cholinesterase Uncoded 06/13/24 08:42
Deficiency
�Medication �Instructions �Recorded �Confirmed �Type
simvastatin 20 mg tablet 20 mg PO MOWEFR@1900 High 11/02/18 06/13/24 History
Cholesterol
dorzolamide 22.3 mg-timolol 6.8 1 drp BOTH EYES BID Eye Condition 08/09/23 08/09/23 History
mg/mL eye drops
latanoprost 0.005 % eye drops 1 drp BOTH EYES HS Eye Condition 08/09/23 06/13/24 History
apixaban 2.5 mg tablet (Eliquis) 2.5 mg PO BID #60 tabs 08/10/23 06/13/24 Rx
cholecalciferol (vitamin D3) 25 25 mcg PO DAILY Supplement 06/13/24 06/13/24 History
mcg (1,000 unit) tablet (Vitamin
D3)
donepezil 10 mg tablet 10 mg PO HS Alzheimer's 06/13/24 06/13/24 History
Review of Systems
-
History Source: Patient
All other systems: Negative unless noted
Physical Exam
Vital Signs
Temp Pulse Resp BP Pulse Ox
98 F 64 16 158/82 98
06/15/24 08:06 06/15/24 08:06 06/15/24 08:06 06/15/24 08:06 06/15/24 08:06
Lab Results
06/15/24 07:29
06/15/24 07:29
Physical Exam
General: No Apparent Distress, Comfortable and Other (frail appearing female)
HEENT: Normocephalic, Anicteric, Moist Mucous Membranes and Other (ecchymoses of R eye)
Respiratory: Clear
Cardiac: S1/S2 and Regular Rhythm
GI: Soft, Non Tender, Non Distended and Normal Bowel Sounds
Musculoskeletal: No Clubbing, No Cyanosis and No Edema
Skin: Warm and Dry
Neuro: Awake, Alert and Oriented (to self)
Impression / Plan
-
Primary Electrical Appliance Mechanic: Dr. DAVON Renee
Assessment:
Presentation with fall
Rhabdomyolysis
UTI
L wrist fracture
Transaminitis
PAF
chronic OAC with eliquis
dementia
CLL
hyperparathyroidism status post parathyroidectomy in 2019
HLD
Hypocalcemia
Hypoalbuminemia
DNR CODE STATUS
ECHO 08/11/23: EF 55 to 60%, normal regional wall motion, aortic sclerosis, mild AR
Plan:
-Patient presents with fall. Events surrounding fall unclear as patient with dementia and unable to recall details. she does have history of syncopal episode presumed to be secondary to afib with RVR 07/2023
-She went into rapid atrial fibrillation last evening and spontaneously converted to sinus rhythm around 5:30 AM on IV Cardizem gtt.
-Her outpatient [facility] has been on hold due to presentation with traumatic injury. hgb downtrending, follow for bleeding
-Concerned that rapid atrial fibrillation contributed to fall as outpatient
-stop IV cardizem gtt. currently on low dose lopressor. As back in sinus rhythm, could consider for amiodarone in attempt to maintain sinus rhythm
-will need to discuss resuming OAC with son - difficult situation, as clearly at risk for additional falls. I asked if I could call her son to discuss her care and she was adamant that I DO NOT call her son to update.
-Last echo from 07/2023 with results as above, consider repeating
-Check TSH
-follow on tele
-d/w nursing
Data Reviewed
-
EKG: Tracing Personally Visualized and interpreted
Radiology: Report Reviewed by me
Medical Tests (Nuc Med, Echo etc): Report Reviewed by me
Labs: Labs Reviewed by me
Old Records: Reviewed
[2024-06-15] MEDS: ROCEPHIN 1000 MG IV (12:21)
[2024-06-15] MEDS: STERILE WATER FOR INJECTION 10 ML IV (12:22)
--- NOTE | 2024-06-15 13:18 | W.PN.HOSP.TC ---
Today's Communication/Plan
-
Follow up cards recs
complete atb day 01/16
For [facility]
Assessment / Plan
Assessment / Plan
Urinary tract infection, baseline dementia unclear if she has symptoms or not, urine analysis demonstrating leuk site esterase, white blood cells, many bacteria, ucx negative, Rocephin
Acute rhabdomyolysis secondary to fall being found down on ground unknown downtime. IV fluids. Daily CK. Fall precautions. Renal function not affected at this time will monitor creatinine closely.
Left hook of hamate fracture seen by orthopedics recommended nonweightbearing/no lifting with left upper extremity if able to follow directions. Ice to left wrist and hand. Repeat hand x-ray in 2 weeks. Volar splint. Outpatient follow-up.
Transaminitis likely related to acute rhabdo. Will follow. Improving on IV fluids as expected
Atrial fibrillation on apixaban 2.5 mg p.o. twice daily. Will hold this at this time. On cardizem gtt. will hold. back in sr. Cards consulted. follow up there recs
Hyperlipidemia continue statin
Dementia continue donepezil. Delirium precautions.
Vitamin D deficiency continue cholecalciferol 25 mcg daily
Spoke with her next of kin/power of deputy commonwealth's attorney medical and durable, single living son. Agrees that DO NOT RESUSCITATE DO NOT INTUBATE. Hold Eliquis until he has further discussions with PCP. Understands increased bleeding risk especially with
falls. Understand that ff she bleeds she may have a large brain bleed. States he will talk to the PCP about this however at this time agrees with holding
Anticipated Discharge: Within 24 hours
Subjective/Interval History
-
Date of Service: June 15, 2024
verbalizing today
asking for a warm blanket and to take off the old blankets
Objective Data
-
Labs:
Laboratory Results
06/15/24
07:29
WBC 6.0
Hgb 10.3 L
Hct 31.1 L
Plt Count 131
Sodium 136
Potassium 3.7
Chloride 111 H
Carbon Dioxide 23
BUN 19 H
Creatinine 0.5 L
Glucose 93
Calcium 7.5 L
Total Bilirubin 1.3
AST 40 H
ALT 21
Alkaline Phosphatase 48
Vital Signs:
Vital Signs
Temp Pulse Resp BP Pulse Ox
98.5 F 81 18 147/76 97
06/15/24 11:00 06/15/24 11:00 06/15/24 11:00 06/15/24 11:00 06/15/24 11:00
I&O
06/14/24 06/15/24 06/16/24
06:59 06:59 06:59
Intake Total 2240 / 2240 4440 / 4440
Output Total 600 / 600
Balance 2240 / 2240 3840 / 3840
--- NOTE | 2024-06-15 13:21 | CM ---
IA completed.
DX: fall, rhabdo
Patient lives at [facility] alone.
PLOF: Independent.
Son Lenny was in the process prior to hospitalization trying to get her in [facility].
PT/OT recommending SNF - Lenny states would like [facility]errals [facility].
Referrals placed to [facility].
Will need [employer] authorization.
PCP: Dr. Radha Aguilera
Pharmacy: [facility]
PLAN: Discharge when stable. Adjusting cardiac medications. SNF
[2024-06-15] MEDS: NSS IV ×2 (16:42)
[2024-06-15] MEDS: LIPITOR 10 MG PO (17:58)
[2024-06-15] MEDS: XALATAN OPHTHALMIC SOLUTION 1 DROP BOTH EYES (20:39)
[2024-06-16] VITALS (7 sets, daily range): BP systolic 122–162; BP diastolic 58–94; PULSE 72; O2SAT 97
[2024-06-16] MEDS: NSS 1000 IV ×2 (00:52→13:27)
[2024-06-16 08:24] LABS: Hematocrit 31.9 % (37.0-47.0); Hemoglobin 10.7 g/dL (12.0-16.0); Mean Corp Hgb Conc. 33.5 g/dL (33.0-37.0); Mean Corpuscular Hgb 31.8 pg (27.0-31.0); Mean Corpuscular Volume 94.7 fL (81.0-99.0); Mean Platelet Volume 10.3 fL (7.4-10.4); Platelet Count 140 10^3/uL (130-400); Red Blood Cell Count 3.37 10^6/uL (4.20-5.40); Red Cell Dist. Width 13.1 % (11.5-14.5)
[2024-06-16 09:13] LABS: ALT (SGPT) 22 U/L (0-35); AST (SGOT) 35 U/L (14-36); Albumin 2.5 g/dl (3.5-5.0); Alkaline Phosphatase 52 U/L (38-126); Blood Urea Nitrogen 11 mg/dl (7-17); Calcium 7.6 mg/dl (8.4-10.2); Carbon Dioxide 27 mmol/L (22-30); Chloride 110 mmol/L (98-107); Creatine Phosphokinase 322 U/L (30-135); Estimated Creatinine Clearance 61 ml/min; Glucose 86 mg/dl (70-99); Potassium 3.5 mmol/L (3.5-5.1); Sodium 138 mmol/L (135-145); Total Protein 4.2 g/dl (6.3-8.2); eGFR > 60.00
[2024-06-16] MEDS: PACERONE 200 MG PO ×2 (10:20→20:03)
[2024-06-16] MEDS: ELIQUIS 2.5 MG PO (10:20)
[2024-06-16] MEDS: COSOPT EYE DROPS 1 DROP BOTH EYES ×2 (10:21→20:05)
[2024-06-16] MEDS: LOPRESSOR 12.5 MG PO ×2 (10:24→20:03)
--- NOTE | 2024-06-16 13:13 | W.PN.CARDCBS ---
Addendum entered and electronically signed by Carlo Garcia DO 06/16/24 14:32:
I saw and examined the patient.
The College Admissions Counselor's note was reviewed and I agree with the note.
Comment:
Plan:
Son with concerns about falls and Eliquis was stopped due to bleeding risks.
He understands stroke risk off anticoagulation, but given fall risk this is reasonable.
Amiodarone for rate control
Pt son understands and agrees with current status and plan of care
Outpt cardiac follow up arranged.
Original Note:
Today's Communication / Plan
-
start amiodarone 200mg BID for rate control
stop eliquis
EKG in AM, follow QTc
OP cardiac follow up arranged
Impression / Plan
-
Primary American Sign Language Interpreter: Dr. DAVON Renee
Assessment:
Presentation with fall
Rhabdomyolysis
UTI
L wrist fracture
Transaminitis
PAF
chronic OAC with eliquis
dementia
CLL
hyperparathyroidism status post parathyroidectomy in 2019
HLD
Hypocalcemia
Hypoalbuminemia
DNR CODE STATUS
ECHO 08/11/23: EF 55 to 60%, normal regional wall motion, aortic sclerosis, mild AR
Plan:
-Patient presented with fall. Events surrounding fall unclear as patient with dementia and unable to recall details. she does have history of syncopal episode presumed to be secondary to afib with RVR 07/2023
-she had episode of afib with RVR s/p spontaneous conversion to SR 06/15.
-Concern that rapid atrial fibrillation contributed to fall as outpatient given prior history of fall/syncope in 07/2023
-she continues on eliquis 2.5mg BID at present, however hospitalist had conversation with POA cruz Galvez and plan was to stop OAC. hgb remains fairly stable since admission, 10.7 on 06/16. discussed risks vs benefits of OAC with Lenny arroyo for 10:30 on
06/16. He reports he is working on trying to get her into memory care, however there will be a time once she is released from SNF and prior to getting into memory care that she will be back at her independent apartment without 08/06 supervision. His
main concern is about her falling again. we discussed amiodarone and he is agreeable to start, mainly for rate control at this time. we discussed risk of CVA associated with PAF off of OAC and he expressed understanding. will stop eliquis. continue
low dose lopressor. would continue amiodarone 200mg BID for 2 weeks then decrease to 200mg daily. would check EKG in AM to assess QTc if patient staying overnight
-Last echo from 07/2023 with results as above
-Check TSH
-will arrange OP cardiac follow up
-d/w nursing
Progress Note - American Sign Language Interpreter
Subjective
Date of Service: June 16, 2024
States she feels better today. No palpitations
Objective
Labs:
06/16/24 07:57
06/16/24 07:57
Labs
Hgb 10.7 g/dL (12.0-16.0) L 06/16/24 07:57
Hct 31.9 % (37.0-47.0) L 06/16/24 07:57
Plt Count 140 10^3/uL (130-400) 06/16/24 07:57
Sodium 138 mmol/L (135-145) 06/16/24 07:57
Potassium 3.5 mmol/L (3.5-5.1) 06/16/24 07:57
BUN 11 mg/dl (7-17) 06/16/24 07:57
Creatinine 0.5 mg/dL (0.6-1.0) L 06/16/24 07:57
Glucose 86 mg/dl (70-99) 06/16/24 07:57
Vital Signs and I&O:
Vital Signs
Temp Pulse Resp BP Pulse Ox
97.9 F 74 20 129/74 98
06/16/24 12:08 06/16/24 08:09 06/16/24 08:09 06/16/24 08:09 06/16/24 12:08
Vital Signs
Temp Pulse Resp BP Pulse Ox
97.9 F 74 20 129/74 98
06/16/24 12:08 06/16/24 08:09 06/16/24 08:09 06/16/24 08:09 06/16/24 12:08
Intake & Output
06/14/24 06/15/24 06/16/24 06/17/24
07:59 07:59 07:59 07:59
Intake Total 2240 / 2240 4440 / 4440 1515 / 1515
Output Total 600 / 600 1500 / 1500
Balance 2240 / 2240 3840 / 3840 15 / 15
Physical Exam
Physical Exam
GEN: No distress, awake, alert, oriented to self.
HEENT: supple, anicteric, mmm, eomi. R face laceration/bruising
LUNGS: CTA B/L, no wheezes/rales
CV: Reg, S1/S2, no murmur
EXT: No cyanosis, clubbing, edema
NEURO: Gross non-focal
SKIN: Warm, pink, dry. No rash
[2024-06-16] MEDS: ROCEPHIN 1000 MG IV (13:21)
[2024-06-16] MEDS: STERILE WATER FOR INJECTION 10 ML IV (13:21)
--- NOTE | 2024-06-16 13:30 | W.PN.HOSP.TC ---
Addendum entered and electronically signed by Tolu Galindo MD 06/16/24 17:49:
acanemia likely multifactorial in the setting of acute blood loss, dilutional as was on IVF for rhabdo and anemia of chronic disease.
Original Note:
Today's Communication/Plan
-
.
Assessment / Plan
Assessment / Plan
Urinary tract infection, baseline dementia unclear if she has symptoms or not, urine analysis demonstrating leuk site esterase, white blood cells, many bacteria, ucx negative, Rocephin
Acute rhabdomyolysis secondary to fall being found down on ground unknown downtime. IV fluids. Daily CK. Fall precautions. Renal function not affected at this time will monitor creatinine closely.
Left hook of hamate fracture seen by orthopedics recommended nonweightbearing/no lifting with left upper extremity if able to follow directions. Ice to left wrist and hand. Repeat hand x-ray in 2 weeks. Volar splint. Outpatient follow-up.
Transaminitis likely related to acute rhabdo. Will follow. Improving on IV fluids as expected
Atrial fibrillation on apixaban 2.5 mg p.o. twice daily. Will hold this at this time. On cardizem gtt. will hold. back in sr. Cards consulted. follow up there recs
Hyperlipidemia continue statin
Dementia continue donepezil. Delirium precautions.
Vitamin D deficiency continue cholecalciferol 25 mcg daily
Spoke with her next of kin/power of human services assistant medical and durable, single living son. Agrees that DO NOT RESUSCITATE DO NOT INTUBATE. Hold Eliquis until he has further discussions with PCP. Understands increased bleeding risk especially with
falls. Understand that ff she bleeds she may have a large brain bleed. States he will talk to the PCP about this however at this time agrees with holding
06/16 i spoke with her son Lenny. Informed him about the amiodarone. Confirmed with him the disconitnuation of eliquis for which he soke to her PCP ene and agreed that would be best for her. I notified him that we are just waiting on a SNF
Anticipated Discharge: Today
Subjective/Interval History
-
Date of Service: June 16, 2024
no complaitns
Objective Data
-
Labs:
Laboratory Results
06/16/24
07:57
WBC 5.0
Hgb 10.7 L
Hct 31.9 L
Plt Count 140
Sodium 138
Potassium 3.5
Chloride 110 H
Carbon Dioxide 27
BUN 11
Creatinine 0.5 L
Glucose 86
Calcium 7.6 L
Total Bilirubin 1.0
AST 35
ALT 22
Alkaline Phosphatase 52
Vital Signs:
Vital Signs
Temp Pulse Resp BP Pulse Ox
97.9 F 78 18 161/85 98
06/16/24 12:08 06/16/24 12:08 06/16/24 12:08 06/16/24 12:08 06/16/24 12:08
I&O
06/15/24 06/16/24 06/17/24
06:59 06:59 06:59
Intake Total 4440 / 4440 1515 / 1515
Output Total 600 / 600 1500 / 1500
Balance 3840 / 3840
--- NOTE | 2024-06-16 13:51 | PN.CDI ---
CDI
- -
CDI:
Physician Documentation Request
Admit Date: 06/13/24 13:49
Dear Doctor Mateo,
Please review the following and provide your response in the progress notes.
Clinical Indicators:
H+P,
#noted multiple bruise and repeat as skin tear on b/l LE knee.
#Skin: Other (multiple skin tear b/l LE, right brow laceration);
#Chronic lymphocytic leukemia
PN, 06/16
#Atrial fibrillation on apixaban 2.5 mg p.o. twice daily.
#...Will hold this at this time. On cardizem gtt. will hold.....
Laboratory Tests
06/13/24 06/14/24 06/14/24
09:14 07:13 10:16
Hgb 15.2 11.5 L D 11.3 L
Hct 43.3 34.3 L
06/15/24 06/16/24
07: 07:57
Hgb 10.3 L 10.7 L
Hct 31.1 L 31.9 L
Based on the above and your clinical assessment, please clarify the likely condition/diagnosis evaluated, monitored and/or treated?
Acute blood loss anemia
Precipitous drop in hematocrit
Anemia is associated with/enhanced by anticoagulant(Eliquis)
Anemia of chronic disease - indicate if neoplastic disease, CKD or other
Other(please specify)
Use of terms such as suspected, likely, concern for, or probable (associated with a specific diagnosis that is being evaluated, monitored, or treated as if it exists) are acceptable and can be coded in the inpatient setting, when documented at the
time of discharge.
Thank you,
Avis Christy RN BSN CCDS
CDI Specialist
please contact via tiger text
Please use your independent medical judgment in providing your response.
[2024-06-16 15:00] LABS: TSH Reflex To Free T4 5.82 uIU/ml (0.47-4.68)
--- NOTE | 2024-06-16 15:17 | CM ---
Addendum entered by Roya Deluna 06/16/24 15:54:
[employer] authorization obtained
Cert #: [id number]
Start date 06/17/24 - End date 06/29/[address] Galindo
Notified son of discharge tomorrow to [facility]
Spoke with Gale mercado and gave her auth # and dates of auth.
Plan: Discharge to [facility] 06/17.
Transport forms filled out on chart.
Transport time TBD.
Report #: [phone]
Fax #: [phone]
Original Note:
Spoke with son regarding no bed available at [place].
Discussed checking with Eirck Vazquez regarding out of network costs.
Discussed other options - [facility] & [facility] referrals placed in care port.
WILL NEED [employer] AUTHORIZATION
PLAN: Discharge to SNF - additional referrals placed in care port to [facility] & [facility].
Will follow up
[2024-06-16 15:27] LABS: Free T4 1.17 ng/dl (0.78-2.19)
[2024-06-16] MEDS: NSS IV (20:04)
[2024-06-16] MEDS: XALATAN OPHTHALMIC SOLUTION 1 DROP BOTH EYES (22:19)
[2024-06-17 03:12] VITALS: BP 133/60
[2024-06-17 06:00] VITALS: BMI 18.7
[2024-06-17 07:30] VITALS: BP 159/68
[2024-06-17 08:12] LABS: Hematocrit 30.1 % (37.0-47.0); Hemoglobin 10.2 g/dL (12.0-16.0); Mean Corp Hgb Conc. 33.9 g/dL (33.0-37.0); Mean Corpuscular Hgb 31.8 pg (27.0-31.0); Mean Corpuscular Volume 93.8 fL (81.0-99.0); Mean Platelet Volume 10.1 fL (7.4-10.4); Platelet Count 145 10^3/uL (130-400); Red Blood Cell Count 3.21 10^6/uL (4.20-5.40); White Blood Cell Count 4.5 10^3/uL (4.8-10.8)
[2024-06-17] MEDS: PACERONE 200 MG PO (08:21)
[2024-06-17] MEDS: LOPRESSOR 12.5 MG PO (08:21)
[2024-06-17] MEDS: COSOPT EYE DROPS 1 DROP BOTH EYES (08:22)
--- NOTE | 2024-06-17 08:23 | PN.CDI ---
CDI
- -
CDI:
Physician Documentation Request
Admit Date: 06/13/24 13:49
Dear Doctor Mateo,
Please review the following and provide your response in the progress notes.
Clinical Indicators:
Laboratory Tests
06/13/24 06/14/24 06/15/24
09:14 07:13 07:29
Potassium 4.2 3.3 L 3.7
06/16/24
07:57
Potassium 3.5
Medications
Potassium Chloride (Potassium Chloride 20 Meq Extended Release Tablet) 40 meq PO Q4H ONE
Stop: 06/14/24 12:20
Last Admin: 06/14/24 12:55 Dose: 40 meq
Based on the above and your clinical assessment, please clarify in the progress notes, the appropriate diagnosis, if significant, that supports the above abnormalities and additional evaluation, monitoring and/or treatment rendered:
Hypokalemia
Abnormal lab value, clinically insignificant
Other(please specify)
Use of terms such as suspected, likely, concern for, or probable (associated with a specific diagnosis that is being evaluated, monitored, or treated as if it exists) are acceptable and can be coded in the inpatient setting, when documented at the
time of discharge.
Thank you,
Avis Christy RN BSN CCDS
CDI Specialist
please contact viat tiger text
Please use your independent medical judgment in providing your response.
[2024-06-17 08:54] LABS: ALT (SGPT) 21 U/L (0-35); AST (SGOT) 29 U/L (14-36); Albumin 2.6 g/dl (3.5-5.0); Alkaline Phosphatase 52 U/L (38-126); Blood Urea Nitrogen 9 mg/dl (7-17); Calcium 7.8 mg/dl (8.4-10.2); Carbon Dioxide 26 mmol/L (22-30); Chloride 110 mmol/L (98-107); Creatine Phosphokinase 242 U/L (30-135); Estimated Creatinine Clearance 61 ml/min; Glucose 82 mg/dl (70-99); Potassium 3.7 mmol/L (3.5-5.1); Sodium 137 mmol/L (135-145); Total Bilirubin 0.9 mg/dl (0.2-1.3); Total Protein 4.3 g/dl (6.3-8.2); eGFR > 60.00
--- NOTE | 2024-06-17 09:57 | W.PN.HOSP.TC ---
Addendum entered and electronically signed by Tolu Galindo MD 06/17/24 10:46:
hypokalemia replete prn
Original Note:
Today's Communication/Plan
-
dc today to SNF
Assessment / Plan
Assessment / Plan
Urinary tract infection, baseline dementia unclear if she has symptoms or not, urine analysis demonstrating leuk site esterase, white blood cells, many bacteria, ucx negative, Rocephin
Acute rhabdomyolysis secondary to fall being found down on ground unknown downtime. IV fluids. Daily CK. Fall precautions. Renal function not affected at this time will monitor creatinine closely.
Left hook of hamate fracture seen by orthopedics recommended nonweightbearing/no lifting with left upper extremity if able to follow directions. Ice to left wrist and hand. Repeat hand x-ray in 2 weeks. Volar splint. Outpatient follow-up.
Transaminitis likely related to acute rhabdo. Will follow. Improving on IV fluids as expected
Atrial fibrillation on apixaban 2.5 mg p.o. twice daily. Will hold this at this time. On cardizem gtt. will hold. back in sr. Cards consulted. follow up there recs
Hyperlipidemia continue statin
Dementia continue donepezil. Delirium precautions.
Vitamin D deficiency continue cholecalciferol 25 mcg daily
Spoke with her next of kin/power of claim attorney medical and durable, single living son. Agrees that DO NOT RESUSCITATE DO NOT INTUBATE. Hold Eliquis until he has further discussions with PCP. Understands increased bleeding risk especially with
falls. Understand that ff she bleeds she may have a large brain bleed. States he will talk to the PCP about this however at this time agrees with holding
06/16 i spoke with her son Lenny. Informed him about the amiodarone. Confirmed with him the disconitnuation of eliquis for which he soke to her PCP ene and agreed that would be best for her. I notified him that we are just waiting on a SNF
Anticipated Discharge: Today
Subjective/Interval History
-
Date of Service: June 17, 2024
seen and examined
asked me to take her tray
asked me who I was even though I was introducing myself to her on a daily bases
-yet she knows that she is at and it is 2023.
Objective Data
-
Labs:
Laboratory Results
06/17/24
07:48
WBC 4.5 L
Hgb 10.2 L
Hct 30.1 L
Plt Count 145
Sodium 137
Potassium 3.7
Chloride 110 H
Carbon Dioxide 26
BUN 9
Creatinine 0.5 L
Glucose 82
Calcium 7.8 L
Total Bilirubin 0.9
AST 29
ALT 21
Alkaline Phosphatase 52
Vital Signs:
Vital Signs
Temp Pulse Resp BP Pulse Ox
98.9 F 68 16 159/68 94
06/17/24 07:30 06/17/24 07:30 06/17/24 07:30 06/17/24 07:30 06/17/24 07:30
I&O
06/16/24 06/17/24 06/18/24
06:59 06:59 06:59
Intake Total 1515 / 1515 990 / 990
Output Total 1500 / 1500
Balance 15 990 / 990
--- NOTE | 2024-06-17 09:58 | W.DCSUMMARY ---
Discharge Summary
Discharge Data
Date of Admission: 06/13/24
Date of Discharge: 06/17/24
-
Pending Results: No
Hospital Course
83F with hx of senile dementia, hyperparathyroidism, afib hld presented after being found down on the ground. Unknown for how long. He had a rate eyebrow laceration. Also found to have a left hand fracture specifically at the hook of the hamate
which was placed in a volar splint by orthopedics recommend outpatient follow-up. Due to not knowing how long she was down for there was evidence of rhabdomyolysis started on IV fluids which improved. Discussed with her son over the phone as he is
the medical and DURABLE POWER OF STAFF PHARMACIST to discontinue Eliquis at this time, he called her pharmacy, assisted living factility to not fill this medication any further and spoke with her PCP about discontinuation as well. Her son made her DNR/DNI.
Additionally, on 06/13/2024 went into atrial fibrillation with RVR started on IV Cardizem drip. This was then discontinued. Evaluated by cardiology recommended amiodarone 200 mg twice a day with outpatient cardiology follow-up.
-CT cervical spine without contrast no acute osseous abnormalities of cervical spine or anterior lateral changes.
-CT facial bones no acute facial bone fracture
-CT head no acute intracranial abnormality
-Hip x-ray no acute radiographic abnormality
-Bilateral knee x-ray no acute radiographic abnormality
-Right shoulder x-ray no acute osseous abnormalities stable severe degenerative changes at the right glenohumeral joint
-Wrist x-ray left suspected fracture of hook of hamate bone only seen on lateral projection
-Wrist x-ray right no acute radiographic abnormality
-Right elbow x-ray no acute osseous abnormality of the right elbow
Wound Care Instructions
R eyebrow/temporal: clean with soap and water, smear of honey gel, folded 2x2 gauze and paper tape daily.
R elbow, hip, and L knee: clean with soap and water, alginate and dry dressing change daily. Can add adaptic under alginate if sticking.
air mattress with turning schedule
Follow up at wound care center call for an appointment.
Discharge Plan
-
Patient Disposition: Shelter/SNF
Discharge Diagnosis/Procedures: Fall
Rhabdo
Senile dementia
HLD
Hyperparathyroidism
Atrial fib
Condition: Fair
Diet: As tolerated
Activity: As tolerated and Other activity
Additional Activity: Remain in brace. NWB LUE. No lifting
Others Tests: please check EKG on Thursday06/17/24 to assess QTc on amiodarone!
Activity Restrictions/Additional Instructions:
Presented after being found down on the ground. Unknown for how long. He had a rate eyebrow laceration. Also found to have a left hand fracture specifically at the hook of the hamate which was placed in a volar splint by orthopedics recommend
outpatient follow-up. Due to not knowing how long she was down for there was evidence of rhabdomyolysis started on IV fluids which improved. Discussed with her son over the phone as he is the medical and DURABLE POWER OF STAFF PHARMACIST to discontinue
Eliquis at this time, he called her pharmacy, assisted living factility to not fill this medication any further and spoke with her PCP about discontinuation as well. Her son made her DNR/DNI. Additionally, on 06/13/2024 went into atrial
fibrillation with RVR started on IV Cardizem drip. This was then discontinued. Evaluated by cardiology recommended amiodarone 200 mg twice a day with outpatient cardiology follow-up.
-CT cervical spine without contrast no acute osseous abnormalities of cervical spine or anterior lateral changes.
-CT facial bones no acute facial bone fracture
-CT head no acute intracranial abnormality
-Hip x-ray no acute radiographic abnormality
-Bilateral knee x-ray no acute radiographic abnormality
-Right shoulder x-ray no acute osseous abnormalities stable severe degenerative changes at the right glenohumeral joint
-Wrist x-ray left suspected fracture of hook of hamate bone only seen on lateral projection
-Wrist x-ray right no acute radiographic abnormality
-Right elbow x-ray no acute osseous abnormality of the right elbow
Wound Care Instructions
R eyebrow/temporal: clean with soap and water, smear of honey gel, folded 2x2 gauze and paper tape daily.
R elbow, hip, and L knee: clean with soap and water, alginate and dry dressing change daily. Can add adaptic under alginate if sticking.
air mattress with turning schedule
Follow up at wound care center call for an appointment.
Instructions: Rhabdomyolysis, Hand fracture
Referrals:
Anish Peters PA-C [Specified Professional Personl] - in two weeks
Radha Aguilera MD [Family Provider] -
Grupo Renee MD [Active] - 07/15/24 11:20 am (You have a cardiology follow-up appointment at the [facility] office. Please call with questions)
Additional Discharge Medication Instructions: continue amiodarone 200mg twice daily for 2 weeks then decrease to 200mg daily as of 06/30/24.
Prescriptions:
New
amiodarone 200 mg tablet
200 mg PO BID Qty: 60 0RF
Rx Instructions:
please take 200mg twice daily for 2 weeks then decrease to 200mg daily!
Continued
simvastatin 20 MG tablet
20 mg PO MOWEFR@1900
latanoprost 0.005 % drops
1 drp BOTH EYES HS
dorzolamide-timolol 22.3-6.8 mg/mL drops
1 drp BOTH EYES BID
donepezil 10 mg Tablet
10 mg PO HS
cholecalciferol (vitamin D3) [Vitamin D3] 25 mcg (1,000 unit) Tablet
25 mcg PO DAILY
Discontinued
Eliquis 2.5 mg Tablet
2.5 mg PO BID Qty: 60 0RF
Discharge Orders:
Discharge Patient (As Directed); Ordered 06/16/24
Ordered By: Tolu Galindo
Discharge Date and Time
Print Language: MOHAWK
--- NOTE | 2024-06-17 10:17 | CM ---
Patient for d/c to [facility] today.
Ambulance transport forms on chart.
Plan: [facility]
Report #: [phone]
Fax #: [phone]
--- NOTE | 2024-06-17 10:27 | CM ---
Transport time at 11am via ambulance to [facility]. Gale notified.
--- NOTE | 2024-06-17 10:30 | CM ---
On 06/16/24 at 4pm CM explained over the phone the IMM to son Lenny.
Lenny verbalizes understanding of IMM form.
[2024-06-17 10:35] VITALS: BP 160/82
== END 2024-06-17 11:15 | DRG 565 ==
LOC: 4 WEST ACU 13:49
PROVIDERS: Registered Nurse; ADMITTING PHYSICIAN Hospitalist; CONSULT PHYSICIAN Internal Medicine Cardiovascular Disease; CONSULT PHYSICIAN Specialist; EMERGENCY PHYSICIAN Emergency Medicine; FAMILY PHYSICIAN Internal Medicine
DX: T79.6XXA Traumatic ischemia of muscle, initial encounter (principal); C91.10 Chronic lymphocytic leukemia of B-cell type not having achieved remission; N39.0 Urinary tract infection, site not specified; F02.83 Dementia in other diseases classified elsewhere, unspecified severity, with mood disturbance; D62 Acute posthemorrhagic anemia; M80.042A Age-related osteoporosis with current pathological fracture, left hand, initial encounter for fracture; D63.8 Anemia in other chronic diseases classified elsewhere; G30.9 Alzheimer's disease, unspecified; I35.1 Nonrheumatic aortic (valve) insufficiency; Z66 Do not resuscitate; F32.A Depression, unspecified; L89.151 Pressure ulcer of sacral region, stage 1; E88.09 Other disorders of plasma-protein metabolism, not elsewhere classified; I48.0 Paroxysmal atrial fibrillation; E78.5 Hyperlipidemia, unspecified; E21.3 Hyperparathyroidism, unspecified; K21.9 Gastro-esophageal reflux disease without esophagitis; M17.11 Unilateral primary osteoarthritis, right knee; M25.511 Pain in right shoulder; M25.551 Pain in right hip; M54.2 Cervicalgia; S01.111A Laceration without foreign body of right eyelid and periocular area, initial encounter; S62.142A Displaced fracture of body of hamate [unciform] bone, left wrist, initial encounter for closed fracture; W19.XXXA Unspecified fall, initial encounter; Y92.129 Unspecified place in nursing home as the place of occurrence of the external cause; E87.6 Hypokalemia; R79.89 Other specified abnormal findings of blood chemistry; R74.01 Elevation of levels of liver transaminase levels; R74.8 Abnormal levels of other serum enzymes; Z79.01 Long term (current) use of anticoagulants; Z79.899 Other long term (current) drug therapy; Z88.0 Allergy status to penicillin; Z88.8 Allergy status to other drugs, medicaments and biological substances
CPT/HCPCS: 70450; 70486; 72125; 73030; 73080; 73110; 73502; 73564; 80053; 81003; 81015; 82550; 83605; 83735; 84439; 84443; 85018; 85025; 85027; 87070; 87077; 87086; 87147; 87186; 90471; 90715; 93005; 96374; 97530; 99285

== ENCOUNTER 2024-07-28 17:48 | Inpatient (IN) | payer OTHER, SELFPAY ==
[2024-07-28] VITALS (7 sets, daily range): BP systolic 102–148; BP diastolic 56–81; BMI 19.6; BMI 19.5
[2024-07-28 15:24] LABS: % Basophils 0.3 % (0-2); % Eosinophils 1.8 % (0-6); % Immature Granulocytes 0.4 % (0-0.5); % Lymphocytes 25.8 % (20.5-51.1); % Monocytes 12.2 % (1.7-9.3); % Neutrophils 59.5 % (42.2-75.2); Absolute Eosinophils 0.1 10^3/uL (0-0.7); Absolute Lymphocytes 1.9 10^3/uL (1.2-3.4); Absolute Monocytes 0.9 10^3/uL (0.1-0.6); Absolute Neutrophils 4.4 10^3/uL (1.4-6.5); Hemoglobin 11.2 g/dL (12.0-16.0); Mean Corp Hgb Conc. 32.9 g/dL (33.0-37.0); Mean Corpuscular Hgb 31.3 pg (27.0-31.0); Mean Platelet Volume 9.7 fL (7.4-10.4); Nucleated Red Blood Cells % 0 %; Platelet Count 213 10^3/uL (130-400); Red Blood Cell Count 3.58 10^6/uL (4.20-5.40); Red Cell Dist. Width 14.1 % (11.5-14.5); White Blood Cell Count 7.4 10^3/uL (4.8-10.8)
[2024-07-28 15:26] LABS: ALT (SGPT) 14 U/L (0-35); AST (SGOT) 19 U/L (14-36); Albumin 3.4 g/dl (3.5-5.0); Alkaline Phosphatase 86 U/L (38-126); Blood Urea Nitrogen 27 mg/dl (7-17); Calcium 9.1 mg/dl (8.4-10.2); Carbon Dioxide 31 mmol/L (22-30); Chloride 99 mmol/L (98-107); Estimated Creatinine Clearance 42 ml/min; Glucose 115 mg/dl (70-99); Potassium 4.3 mmol/L (3.5-5.1); Sodium 140 mmol/L (135-145); Total Bilirubin 0.8 mg/dl (0.2-1.3); Total Protein 5.5 g/dl (6.3-8.2); eGFR > 60.00
--- NOTE | 2024-07-28 16:30 | ED.GENMED ---
History of Present Illness
General
Chief Complaint: Skin Problem
Source: records and [facility]
Time Seen by Provider: 07/28/24 15:51
History of Present Illness
History of Present Illness:
Mohs surgery July 21. Was apparently supposed to be on antibiotics. However was not taking. Seen today. Cellulitis. Sent for IV antibiotics. Patient does not add history
Past History
Past History
ED Past Medical History: Hypercholesterolemia, Other (Hyperparathyroidism) and Other (Dementia)
Review of Systems
Review of Systems
Unable to obtain full review of systems at this time due to: dementia
All Other Systems: Not applicable
Phy Exam
Physical Exam
Physical Exam:
GENERAL: Alert. Elderly and frail. Moderate dementia
EYE: Orbits normal.
NECK: Supple
CARDIAC: Regular rate and rhythm
LUNGS: No respiratory distress
NEUROLOGICAL: Alert and oriented , grossly non-focal
SKIN: Warm and dry, cellulitis with drainage over suture line to the left lower leg. Moderate in nature
MUSCULOSKELETAL: No edema,no deformity.Good color
PSYCH: Normal and appropriate interaction.
Course
Orders/Labs/Results
Orders:
Orders
07/28/24 14:57
Complete Blood Count/With Diff Urgent
Comprehensive Metabolic Panel Urgent
Wound Culture [Wound/Abscess/Other Culture] Urgent
DIANNA Source: Leg
Specimen Description: Left
Date Specimen was Collected: 07/28/24
Time Specimen was Collected: 14:54
07/28/24 16:53
Vancomycin [Vancocin] 1,500 mg 0.9% Sodium Chloride [Nss] 20 ml 0.9% Sodium Chloride 250 ml [Nss] 250 ml IV NOW
07/28/24 16:54
Admit/Transfer Patient As Directed
Co-Sign Provider:
Level of Care: Inpatient admission
Assign to:: Medical/Surgical
Physician / Group: Dr Brooks
Diagnosis: Cellulitis LLE
Reason for Hospitalization: pte p/w significant cellulitis lle post surgical procedure
Expected length of stay greater than two midnights?: Yes
ELOS- Estimated Length of Stay in days: 2
I certify the patient meets the requirements for IP care: Yes
PRN Pain Medication Management As Directed
May give lesser potent ordered pain med per pt: Yes
preference::
Protocol:: Medication orders for pain may be administered in a
manner that supports deferring to patient preference
when the pt is:
- Requesting an ordered lesser potent pain medication.
Least to most potent pain medications are defined
as: acetaminophen < NSAID < tramadol < opioids
(morphine, oxycodone, hydromorphone).
- Requesting a lesser dose of the same medication IF
ORDERED.
- Requesting a less intrusive route of administration
if both routes are prescribed by the provider (PO <
IV).
07/28/24 16:56
Code Status As Directed
Resuscitation Status: Do not resuscitate
Reached after discussion with pt or family/Healthcare POA: Yes
07/28/24 16:57
DNR Bracelet Application ONCE
Abnormal Lab Results
07/28/24
14:57
RBC 3.58 L 10^6/uL
(4.20-5.40)
Hgb 11.2 L g/dL
(12.0-16.0)
Hct 34.0 L %
(37.0-47.0)
MCH 31.3 H pg
(27.0-31.0)
MCHC 32.9 L g/dL
(33.0-37.0)
Absolute Monos (auto) 0.9 H 10^3/uL
(0.1-0.6)
Monocytes % 12.2 H %
(1.7-9.3)
Carbon Dioxide 31 H mmol/L
(22-30)
BUN 27 H mg/dl
(7-17)
Glucose 115 H mg/dl
(70-99)
Total Protein 5.5 L g/dl
(6.3-8.2)
Albumin 3.4 L g/dl
(3.5-5.0)
07/28/24 14:57
07/28/24 14:57
Vital Signs
Initial and Last Documented VS:
Initial Vital Signs
BP
119/56
07/28/24 14:47
Last Documented Vital Signs
Temp Pulse Resp BP Pulse Ox
98.5 F 76 16 148/80 100
07/28/24 16:52 07/28/24 16:52 07/28/24 16:52 07/28/24 16:52 07/28/24 16:52
MDM/Problems Addressed
Differential Diagnosis Includes:
Patient with an obvious cellulitis wound infection of the left lower leg. Contacted facility to get more information. Trying to contact the mill hand currently. IV antibiotics. Discussion on suture removal.
*Pulse Oximetry
Patient hypoxic: no
*Critical Care Note
Total Time (30-74mins, 75-104mins- exclusive of procedures): Not Applicable
Data Reviewed
Review of Other/Old Records Reveals: Labs, Records and Testing
Update Note
Update Note:
Discussed with Dr. Hdz, dermatology. Would like to leave the stitches in for about a week. Unna boot when some of the inflammation and drainage decreased some.
ED Attending Note
-
Portions of this chart may have been created with voice recognition software.� Occasional wrong word or��sound alike� substitutions may have occurred due to the inherent limitations of voice recognition software.
Discharge Plan
Departure
Patient Disposition: Admit
Date of Disposition: 07/28/24
Time of Disposition: 16:32
Presentation/result/management discussed w/ accepting MD/DO: Hospitalist
Discharge Problem:
Cellulitis left lower extremity, Recent Mohs surgery, History of dementia
Interventions
Interventions:
*Risk Screen - Suicide Last Done: 07/28/24 14:52
*General Assessment Last Done: 07/28/24 14:52
*Neglect/Abuse Screening Last Done: 07/28/24 14:52
ED- Fall Risk Assessment Last Done: 07/28/24 14:52
*ED COVID-19 Vaccine History Last Done: 07/28/24 14:52
*Nursing Disposition Last Done: 07/28/24 17:42
ED-Skin Assessment Last Done: 07/28/24 14:52
Discharge Date and Time
Discharge Date/Time: 07/28/24 17:59
[2024-07-28] MEDS: VANCOCIN 300 MG IV (16:59)
[2024-07-28] MEDS: VANCOCIN 300 ML IV (16:59)
--- NOTE | 2024-07-28 16:59 | HPS.HSE ---
Family Physician
-
Family Physician: Radha Aguilera
Chief Complaint
-
Left lower extremity erythema
History of Present Illness
Patient 83 years old female history of dementia, CLL, paroxysmal A-fib, hyperlipidemia, hyperparathyroidism, presented to the hospital with erythema left lower extremity. Most of information gathered from electronic medical records and ER staff
since patient unable to give me accurate information due to her dementia. Patient has been having left lower extremity erythema, tenderness, warmth, and progressively getting worse after she had Mohs surgery in the left lower extremity back on
07/21/2024. No fevers or chills reported. She was supposed to take antibiotics and has not. She had a recent hospitalization last month for UTI, rhabdomyolysis, fall, and discharged on June 17 this year. She was sent over to the hospital for
further evaluation. She was given IV antibiotics in the ED. She was referred to the hospitalist service for further admission and management.
Medical History
Past Medical History
Past Medical History: Reports Other
Additional Past Medical History:
hyperparathyroidism
osteoarthritis
depression
HLD
CLL
osteo
GERD
Past Surgical History: Reports Other
Additional Past Surgical History:
b/l cataract surgery
left oophorectomy
cosmetic facial surgery
abdominoplasty
b/l breast lift and right berate reduction
parathyroidectomy
Social History
Unable to obtain full social history at this time due to: Dementia
Family History
Family History: Not pertinent
Allergies / Home Medications
Allergies reflects when Allergies were last updated in [facility].
Home Medications with original date entered in [facility]
Allergy/Medication List:
Allergies
Allergy/AdvReac Type Severity Reaction Status Date / Time
amoxicillin Allergy Unknown Verified 06/13/24 08:42
Choline Allergy Cholinesterase Uncoded 06/13/24 08:42
Deficiency
Home Medications
simvastatin 20 mg tablet 20 mg PO [id number]@1900 High Cholesterol 11/02/18
dorzolamide 22.3 mg-timolol 6.8 mg/mL eye drops 1 drp BOTH EYES BID Eye Condition 08/09/23
latanoprost 0.005 % eye drops 1 drp BOTH EYES HS Eye Condition 08/09/23
cholecalciferol (vitamin D3) 25 mcg (1,000 unit) tablet (Vitamin D3) 25 mcg PO DAILY Supplement 06/13/24
donepezil 10 mg tablet 10 mg PO HS Alzheimer's 06/13/24
acetaminophen 325 mg tablet (Tylenol) 650 mg PO Q4HPRN PRN mild pain/temp >100 07/28/24
acetaminophen 500 mg tablet (Tylenol Extra Strength) 500 mg PO BID 07/28/24
alprazolam 0.25 mg tablet (Xanax) 0.25 mg PO BIDPRN PRN anxiety 07/28/24
amiodarone 200 mg tablet 200 mg PO DAILY 07/28/24
bisacodyl 10 mg rectal suppository (Dulcolax (bisacodyl)) 10 mg WI DAILYPRN PRN after 24 hrs mom ineffective 07/28/24
magnesium hydroxide 400 mg/5 mL oral suspension (Milk of Magnesia) 30 ml PO [id number] PRN no bm 3 days 07/28/24
menthol 0.44 %-zinc oxide 20.6 % topical ointment (Moisture Barrier Ointment) 1 applic topical TID sacrum 07/28/24
quetiapine 25 mg tablet (Seroquel) 12.5 mg PO DAILY 07/28/24
sodium phosphates 19 gram-7 gram/118 mL enema (Fleet Enema) 118 ml WI DAILYPRN PRN after 24 hrs dulcolax ineffective 07/28/24
Review of Systems
-
Unable to obtain full review of systems at this time due to: Dementia
Physical Exam
Vital Signs
Vital Signs
Temp Pulse Resp BP Pulse Ox
98.5 F 76 16 148/80 100
09/12/24 16:52 07/28/24 16:52 07/28/24 16:52 07/28/24 16:52 07/28/24 16:52
Physical exam:
General: Acutely ill. Nontoxic
HEENT: Normocephalic, Atraumatic and Moist Mucous Membranes
Respiratory: Clear to Auscultation; Negative Wheezes, Rales or Rhonchi
Cardiac: Regular Rhythm and S1/S2
GI: Soft, Nontender and Nondistended
Musculoskeletal: Left lower extremity erythema with warmth and tenderness surrounding sutures aprox >4 inches long and >50% circumference, no fluctuance appreciated or crepitus. No Clubbing, No Cyanosis and some Edema.
Neuro: Awake, Alert and Disoriented
Psych: Calm
Physical Exam
General: Other
Laboratory Results
-
07/28/24 14:57
07/28/24 14:57
Laboratory Results
Total Bilirubin 0.8 mg/dl (0.2-1.3) 07/28/24 14:57
AST 19 U/L (14-36) 07/28/24 14:57
ALT 14 U/L (0-35) 07/28/24 14:57
Alkaline Phosphatase 86 U/L (38-126) 07/28/24 14:57
Data Reviewed
-
Lab Data: Labs Reviewed by me
Impression/Plan
-
IMPRESSION:
Patient 83 years old female with history of multiple comorbidities came into the hospital left lower extremity cellulitis complicated after Mohs surgery. Patient at risk of increased morbidity mortality due to acute presentation and a risk of
losing her limb or progressing into abscess and or sepsis therefore she will need to be treated in the hospital and manage accordingly.
Impression:
Acute cellulitis left lower extremity
Senile vs Alzheimer's dementia, at risk of delirium/sundowning
Conditions prior to presentation:
Hyperlipidemia
Paroxysmal atrial fibrillation-anticoagulation discontinued on recent admission due to risk benefit
Vitamin D deficiency
Hyperparathyroidism status post parathyroidectomy 2018
CLL
PLAN:
IV fluids
Broad-spectrum IV antibiotics Zosyn and vancomycin
Pain control
Wound cultures
Further images only if worsening
Monitor clinical signs of infection
PT eval
Lovenox for DVT prophylaxis
CODE STATUS DNR
Will give further recommendations based on clinical course
Time spent 75 minutes
--- NOTE | 2024-07-28 17:43 | EDRN ---
this RN called the receiving unit and notified them that paper report was going to be tubed up
--- NOTE | 2024-07-28 17:47 | EDRN ---
the pt is resting in stretcher in the lowest position, side rails up x2, call kohli within reach, HOB elevated, call kohli within reach, this RN attempted to change the pts brief and the pt stated 'Leave me alone', the pts brief is slightly damp, pure
wick in place, this RN attempted to dress the pts left lower leg wound and the pt refused, provider notified, awaiting for the pt to be brought up to her room, will continue to monitor the pt closely
[2024-07-28] MEDS: NSS 1000 IV (18:39)
--- NOTE | 2024-07-28 19:16 | PHA.VAN.IN ---
Assessment
- Assessment
Renal Function: Appears elevated from baseline (0.5-0.6)
Concomitant Antimicrobials: piperacillin/tazobactam
Plan
- Plan
Initial / Loading Dose: vanc 1500mg administered @ 1658
Maintenance Regimen: dosing by level
Monitoring: random level 07/29 600
Pharmacokinetics Vancomycin I
- -
Patient Age: 83
Patient Sex: Female
Vancomycin Day #: 1
Indication: Skin And Soft Tissue
Requesting Provider: Dr. Brooks
Pertinent Antimicrobial Allergies:
amoxicillin - unknown
Height / Weight:
Height 5 ft 7 in
Actual Weight 56.444 kg
- Vital Signs / Lab Results
Temp Pulse Resp BP Pulse Ox
99.8 F 83 18 139/79 97
07/28/24 18:21 07/28/24 18:21 07/28/24 18:21 07/28/24 18:21 07/28/24 18:21
Lab Results - Hematology
07/28/24
14:57
WBC 7.4
Lab Results - Chemistry
07/28/24
14:57
BUN 27 H
Creatinine 0.9
Estimated Creat Clear 42
Albumin 3.4 L
Microbiology Results
07/28/24 14:57 Gram Stain - Preliminary
Leg - Left
[2024-07-28] MEDS: TYLENOL 650 MG PO (21:01)
[2024-07-28] MEDS: SEROQUEL 12.5 MG PO (21:01)
[2024-07-28] MEDS: ZOSYN 50 IV (21:02)
[2024-07-28] MEDS: COSOPT EYE DROPS 1 DROP BOTH EYES (21:02)
[2024-07-28] MEDS: ARICEPT 10 MG PO (21:06)
[2024-07-28] MEDS: XALATAN OPHTHALMIC SOLUTION 1 DROP BOTH EYES (21:06)
[2024-07-29] MEDS: TYLENOL PO ×2 (00:48→04:38)
[2024-07-29] MEDS: ZOSYN 50 IV ×4 (01:47→19:52)
[2024-07-29 06:16] LABS: % Basophils 0.1 % (0-2); % Eosinophils 1.9 % (0-6); % Immature Granulocytes 0.4 % (0-0.5); % Lymphocytes 33.7 % (20.5-51.1); % Monocytes 11.4 % (1.7-9.3); % Neutrophils 52.5 % (42.2-75.2); Absolute Eosinophils 0.1 10^3/uL (0-0.7); Absolute Lymphocytes 2.3 10^3/uL (1.2-3.4); Absolute Monocytes 0.8 10^3/uL (0.1-0.6); Absolute Neutrophils 3.6 10^3/uL (1.4-6.5); Hematocrit 30.9 % (37.0-47.0); Hemoglobin 10.2 g/dL (12.0-16.0); Mean Corpuscular Hgb 32.2 pg (27.0-31.0); Mean Corpuscular Volume 97.5 fL (81.0-99.0); Mean Platelet Volume 9.7 fL (7.4-10.4); Nucleated Red Blood Cells % 0 %; Platelet Count 179 10^3/uL (130-400); Red Blood Cell Count 3.17 10^6/uL (4.20-5.40); Red Cell Dist. Width 13.9 % (11.5-14.5); White Blood Cell Count 6.9 10^3/uL (4.8-10.8)
[2024-07-29 06:41] LABS: Blood Urea Nitrogen 23 mg/dl (7-17); Calcium 8.6 mg/dl (8.4-10.2); Carbon Dioxide 28 mmol/L (22-30); Chloride 102 mmol/L (98-107); Estimated Creatinine Clearance 54 ml/min; Glucose 79 mg/dl (70-99); Potassium 4.3 mmol/L (3.5-5.1); Sodium 141 mmol/L (135-145); eGFR > 60.00
[2024-07-29 07:34] VITALS: BP 134/70
[2024-07-29] MEDS: NSS 1000 IV (08:05)
--- NOTE | 2024-07-29 08:05 | PHA.VAN.FU ---
Vancomycin Assessment / Plan
- Assessment
Renal Function: SCR Decreasing (0.9->0.7)
WBC's are: WNL
In the past 24 hrs, patient has been: Afebrile
Concomitant Antimicrobials: Piperacillin/tazobactam
- Assessment - Therapeutic Drug Monitoring
Random Level: 8.0 ~12.5 h post 1500 mg dose
- Dosing Plan
Adjust Regimen to: scheduled 1000 mf q24h - to start this AM
New Regimen Predicts: AUC (531), Peak (36.8), Trough (11.9)
- Monitoring Plan
No level(s) ordered at this time: consider levels when pt nears steady state
- Follow Up
Pharmacy will continue to follow.
Vancomycin Follow UP
- -
Patient Age: 83
Patient Sex: Female
Vancomycin Day #: 2
Indication: Skin And Soft Tissue
Requesting Provider: Dr. Brooks
Pertinent Antimicrobial Allergies:
amoxicillin - unknown
Height / Weight:
Height 5 ft 7 in
Actual Weight 56.444 kg
- Vital Signs / Lab Results
Temp Pulse Resp BP Pulse Ox
97.8 F 64 16 134/70 97
07/29/24 07:34 07/29/24 07:34 07/29/24 07:34 07/29/24 07:34 07/28/24 23:33
Lab Results - Hematology
07/28/24 07/29/24
14:57 05:37
WBC 7.4 6.9
Lab Results - Chemistry
07/28/24 07/29/24
14:57 05:37
BUN 27 H 23 H
Creatinine 0.9 0.7
Estimated Creat Clear 42 54
Albumin 3.4 L
Microbiology Results
07/28/24 14:57 Gram Stain - Preliminary
Leg - Left
Therapeutic Drug Monitoring
Random Vancomycin 8.0 ug/ml 07/29/24 05:37
[2024-07-29] MEDS: TYLENOL 650 MG PO ×4 (08:06→19:52)
[2024-07-29] MEDS: PACERONE 200 MG PO (08:06)
[2024-07-29] MEDS: SEROQUEL 12.5 MG PO (08:08)
[2024-07-29] MEDS: COSOPT EYE DROPS 1 DROP BOTH EYES ×2 (08:08→19:53)
[2024-07-29] MEDS: VITAMIN D3 (cholecalciferol) 25 MCG PO (08:32)
[2024-07-29 09:35] VITALS: BP 102/54; PULSE 65; O2SAT 97
[2024-07-29 09:36] VITALS: BP 102/54; PULSE 65; O2SAT 97
--- NOTE | 2024-07-29 09:40 | W.PN.HOSP.TC ---
Today's Communication/Plan
-
IV antibiotics. CT of the leg.
Assessment / Plan
Assessment / Plan
Physical exam:
General: Acutely ill. Nontoxic
HEENT: Normocephalic, Atraumatic and Moist Mucous Membranes
Respiratory: Clear to Auscultation; Negative Wheezes, Rales or Rhonchi
Cardiac: Regular Rhythm and S1/S2
GI: Soft, Nontender and Nondistended
Musculoskeletal: Left lower extremity erythema with warmth and tenderness surrounding sutures aprox >4 inches long and >50% circumference, no fluctuance appreciated or crepitus. No Clubbing, No Cyanosis and some Edema.
Neuro: Awake, Alert and Disoriented
Psych: Calm
A/P:
Impression:
Acute cellulitis left lower extremity
Senile vs Alzheimer's dementia, at risk of delirium/sundowning
Conditions prior to presentation:
Hyperlipidemia
Paroxysmal atrial fibrillation-anticoagulation discontinued on recent admission due to risk benefit
Vitamin D deficiency
Hyperparathyroidism status post parathyroidectomy 2018
CLL
PLAN:
Stop IV fluids
Cont broad-spectrum IV antibiotics Zosyn and vancomycin
Wound care consult
Pain control
Wound cultures with Staph aureus and Gram stain gram-positive cocci and gram-positive rods.
Unclear if improving or not therefore we will obtain a CT of the left lower extremity to rule out deep infection.
Monitor clinical signs of infection
PT OT recommend skilled rehab
Lovenox for DVT prophylaxis
Try to reach out family but appears wrong number.
CODE STATUS DNR
Anticipated Discharge: > 48 hours
Subjective/Interval History
-
Date of Service: July 29, 2024
Patient still having erythema and warmth left lower extremity. Afebrile
Objective Data
-
Labs:
Laboratory Results
07/29/24
05:37
WBC 6.9
Hgb 10.2 L
Hct 30.9 L
Plt Count 179
Sodium 141
Potassium 4.3
Chloride 102
Carbon Dioxide 28
BUN 23 H
Creatinine 0.7
Glucose 79
Calcium 8.6
Vital Signs:
Vital Signs
Temp Pulse Resp BP Pulse Ox
97.8 F 64 16 134/70 98
07/29/24 07:34 07/29/24 07:34 07/29/24 07:34 07/29/24 07:34 07/29/24 07:34
I&O
07/28/24 07/29/24 07/30/24
06:59 06:59 06:59
Intake Total 480 / 480
Balance 480 / 480
--- NOTE | 2024-07-29 10:10 | CM ---
Addendum entered by Savana Hickey RN 07/29/24 10:40:
CM spoke with Gale from [facility]. Gale confirmed that she is currently STR and will need an authorization to return. [facility] will accept patient back. Referral sent via [facility].
Patient is currently assist x'2 and assist with ADL's. She is independent with feeding herself. Patient is confused, but oriented to self. CM will continue to follow clinical progress for further discharge planning
CM attempted to call son twice, but phone number did not connect.
PLAN: Return to [facility].
Original Note:
CM left message for Gale at [facility] to confirm status at [facility].
[2024-07-29] MEDS: VANCOCIN 200 IV (10:45)
--- NOTE | 2024-07-29 14:16 | WOUNDNOTE ---
TITUS (PHOTO TAKEN BY GERSON LARKIN, [facility] RN)
--- NOTE | 2024-07-29 14:18 | WOUNDNOTE ---
L KNEE (PHOTO TAKEN BY GERSON LARKIN, [facility] RN)
--- NOTE | 2024-07-29 14:18 | WOUNDNOTE ---
ANU (PHOTO TAKEN BY GERSON LARKIN, [facility] RN)
--- NOTE | 2024-07-29 14:19 | WOUNDNOTE ---
LLE (ANTERIOR) (PHOTO TAKEN BY GERSON LARKIN, [facility] RN)
--- NOTE | 2024-07-29 15:01 | WOUNDNOTE ---
[facility] RN note: Patient admitted with left leg cellulitis, patient had Mohs surgery on 07/21.
See H&P for complete history.
PMH: Dementia, from [place]. Afib, hyperlipidemia,
Wound Location and type/assessment: Patient admitted with left LE surgical wound, with some sutures still intact from 07/[address] scan of left lower leg. No odor noted, moderate drainage on old dressing. Patient was given
incontinence care during assessment. Sacrum with stage 1 vs chronic discoloration. Heels are boggy were documented as a stage 1. Patient refused adhesive foam to heels. Scab noted on left knee
Appetite: Unknown, BMI 19
Pressure redistribution devices in place: Versa Care Accumax, patient turns in bed. Heels off-loaded on pillows.
Plan: Local wound care provided as ordered. TT with hospitalist. Will defer to hospitalist for surgical consult after CT scan. Barrier ointment to buttocks with incontinence care. ELINOR Arnold given update. Care plan and discharge instructions updated.
Will continue to follow as needed.
requested for discharge:
Recommend follow up at wound care center upon discharge.
[2024-07-29 15:38] VITALS: BP 121/62
[2024-07-29] MEDS: LOVENOX 40 MG SC (17:53)
[2024-07-29] MEDS: LIPITOR 10 MG PO (18:02)
[2024-07-29] MEDS: ARICEPT 10 MG PO (19:52)
--- NOTE | 2024-07-29 21:00 | PTCARENOTE ---
card for pt form 1844 until 2099- see assessment- report given to next RN
[2024-07-29] MEDS: XALATAN OPHTHALMIC SOLUTION 1 DROP BOTH EYES (22:07)
[2024-07-29 23:51] VITALS: BP 117/62
[2024-07-30] MEDS: TYLENOL 650 MG PO ×5 (01:45→21:31)
[2024-07-30] MEDS: ZOSYN 50 IV ×2 (01:45→10:32)
[2024-07-30] MEDS: VANCOCIN 200 IV (05:27)
[2024-07-30 07:00] VITALS: BP 157/68
--- NOTE | 2024-07-30 07:55 | PTCARENOTE ---
Patient found naked, waking to bathroom while incontinent of bowel & bladder. RN trying to clean patient and patient is aggressive and yelling. Patient states, 'I do not have anything on me. Leave me alone.' Patient cleaned and assisted to chair,
chair and bed alarm maintained. Call kohli in reach.
[2024-07-30 08:38] LABS: % Basophils 0.5 % (0-2); % Eosinophils 3.1 % (0-6); % Immature Granulocytes 0.7 % (0-0.5); % Lymphocytes 24.2 % (20.5-51.1); % Monocytes 13.5 % (1.7-9.3); Absolute Eosinophils 0.2 10^3/uL (0-0.7); Absolute Lymphocytes 1.4 10^3/uL (1.2-3.4); Absolute Monocytes 0.8 10^3/uL (0.1-0.6); Absolute Neutrophils 3.4 10^3/uL (1.4-6.5); Hematocrit 29.7 % (37.0-47.0); Mean Corp Hgb Conc. 33.7 g/dL (33.0-37.0); Mean Corpuscular Hgb 31.4 pg (27.0-31.0); Mean Corpuscular Volume 93.4 fL (81.0-99.0); Nucleated Red Blood Cells % 0 %; Platelet Count 209 10^3/uL (130-400); Red Blood Cell Count 3.18 10^6/uL (4.20-5.40); Red Cell Dist. Width 13.8 % (11.5-14.5); White Blood Cell Count 5.8 10^3/uL (4.8-10.8)
[2024-07-30 09:02] LABS: Blood Urea Nitrogen 17 mg/dl (7-17); Calcium 8.6 mg/dl (8.4-10.2); Carbon Dioxide 28 mmol/L (22-30); Chloride 101 mmol/L (98-107); Estimated Creatinine Clearance 47 ml/min; Glucose 96 mg/dl (70-99); Potassium 4.2 mmol/L (3.5-5.1); Sodium 140 mmol/L (135-145); eGFR > 60.00
--- NOTE | 2024-07-30 09:33 | W.PN.HOSP.TC ---
Today's Communication/Plan
-
IV antibiotics.
Assessment / Plan
Assessment / Plan
Physical exam:
General: Acutely ill. Nontoxic
HEENT: Normocephalic, Atraumatic and Moist Mucous Membranes
Respiratory: Clear to Auscultation; Negative Wheezes, Rales or Rhonchi
Cardiac: Regular Rhythm and S1/S2
GI: Soft, Nontender and Nondistended
Musculoskeletal: Left lower extremity erythema with warmth and tenderness surrounding sutures slight improvement, no fluctuance appreciated or crepitus. No Clubbing, No Cyanosis and some Edema.
Neuro: Awake, Alert and Disoriented
Psych: Calm
A/P:
Impression:
Acute cellulitis left lower extremity post Mohs surgery due to MRSA.
Senile vs Alzheimer's dementia, at risk of delirium/sundowning
Sacral decubitus stage I, present on admission
Conditions prior to presentation:
Hyperlipidemia
Paroxysmal atrial fibrillation-anticoagulation discontinued on recent admission due to risk benefit
Vitamin D deficiency
Hyperparathyroidism status post parathyroidectomy 2018
CLL
PLAN:
Cont IV antibiotics but streamline to IV vancomycin and DC Zosyn.
Off IV fluids
Wound care consult appreciated
Pain control
Wound cultures with MRSA and Gram stain gram-positive cocci and gram-positive rods.
Obtain blood cultures to rule out bacteremia.
CT of the left lower extremity ruled out deep infection/abscess.
Continue to monitor clinically
PT OT recommend skilled rehab
Lovenox for DVT prophylaxis
Try to reach out family but appears wrong number.
CODE STATUS DNR
Anticipated Discharge: > 48 hours
Subjective/Interval History
-
Date of Service: July 30, 2024
Patient seen and examined. Afebrile.
Objective Data
-
Labs:
Laboratory Results
07/30/24
06:52
WBC 5.8
Hgb 10.0 L
Hct 29.7 L
Plt Count 209
Sodium 140
Potassium 4.2
Chloride 101
Carbon Dioxide 28
BUN 17
Creatinine 0.8
Glucose 96
Calcium 8.6
Vital Signs:
Vital Signs
Temp Pulse Resp BP Pulse Ox
98.1 F 64 18 117/62 96
07/29/24 23:51 07/29/24 23:51 07/29/24 23:51 07/29/24 23:51 07/29/24 23:51
I&O
07/29/24 07/30/24 07/31/24
06:59 06:59 06:59
Intake Total 480 / 480 1000 / 1000
Balance 480 / 480 1000 / 1000
--- NOTE | 2024-07-30 09:43 | PHA.VAN.FU ---
Vancomycin Assessment / Plan
- Assessment
Renal Function: Stable
WBC's are: Trending Down
In the past 24 hrs, patient has been: Afebrile
Concomitant Antimicrobials: Piperacillin-tazobactam
- Dosing Plan
Continue: Vanc 1000mg IV Q24H
- Monitoring Plan
Peak Level: 15 at 0830
Trough Level: 16 at 0530
- Follow Up
Pharmacy will continue to follow.
Vancomycin Follow UP
- -
Patient Age: 83
Patient Sex: Female
Vancomycin Day #: 3
Indication: Skin And Soft Tissue
Requesting Provider: Dr. Brooks
Pertinent Antimicrobial Allergies:
amoxicillin - unknown
Height / Weight:
Height 5 ft 7 in
Actual Weight 56.444 kg
- Vital Signs / Lab Results
Temp Pulse Resp BP Pulse Ox
98.1 F 64 18 117/62 96
07/29/24 23:51 07/29/24 23:51 07/29/24 23:51 07/29/24 23:51 07/29/24 23:51
Lab Results - Hematology
07/28/24 07/29/24 07/30/24
14:57 05:37 06:52
WBC 7.4 6.9 5.8
Lab Results - Chemistry
07/28/24 07/29/24 07/30/24
14:57 05:37 06:52
BUN 27 H 23 H 17
Creatinine 0.9 0.7 0.8
Estimated Creat Clear 42 54 47
Albumin 3.4 L
Microbiology Results
07/28/24 14:57 Wound Culture - Final
Leg - Left Staph aureus MRSA
Gram Stain - Final
Therapeutic Drug Monitoring
Random Vancomycin 8.0 ug/ml 07/29/24 05:37
[2024-07-30] MEDS: SEROQUEL 12.5 MG PO (10:32)
[2024-07-30] MEDS: VITAMIN D3 (cholecalciferol) 25 MCG PO (10:33)
[2024-07-30] MEDS: PACERONE 200 MG PO (10:33)
[2024-07-30] MEDS: COSOPT EYE DROPS 1 DROP BOTH EYES ×2 (10:35→21:31)
[2024-07-30] MEDS: TYLENOL PO ×2 (12:06→23:52)
[2024-07-30 15:00] VITALS: BP 111/61
--- NOTE | 2024-07-30 17:00 | PTCARENOTE ---
Patient OOB without calling multiple times. Patient states, 'I need to clean my cabinets.' Patient reoriented to place.
[2024-07-30] MEDS: LOVENOX 40 MG SC (17:16)
[2024-07-30] MEDS: XALATAN OPHTHALMIC SOLUTION 1 DROP BOTH EYES (21:30)
[2024-07-30] MEDS: ARICEPT 10 MG PO (21:31)
[2024-07-30 23:26] VITALS: BP 126/67
[2024-07-31] MEDS: TYLENOL PO (04:16)
[2024-07-31] MEDS: VANCOCIN 200 IV (05:32)
[2024-07-31 07:00] VITALS: BP 139/68
--- NOTE | 2024-07-31 07:42 | PHA.VAN.FU ---
Vancomycin Assessment / Plan
- Assessment
Renal Function: No New Labs Today
In the past 24 hrs, patient has been: Afebrile
- Dosing Plan
Continue: Vanc 1000mg IV Q24H
- Monitoring Plan
Peak Level: 9/15 at 0830
Trough Level: /16 at 0530
- Follow Up
Pharmacy will continue to follow.
Vancomycin Follow UP
- -
Patient Age: 83
Patient Sex: Female
Vancomycin Day #: 4
Indication: Skin And Soft Tissue
Requesting Provider: Dr. Brooks
Pertinent Antimicrobial Allergies:
amoxicillin - unknown
Height / Weight:
Height 5 ft 7 in
Actual Weight 56.444 kg
- Vital Signs / Lab Results
Temp Pulse Resp BP Pulse Ox
98.3 F 65 16 126/67 96
07/30/24 23:26 07/30/24 23:26 07/30/24 23:26 07/30/24 23:26 07/30/24 23:26
Lab Results - Hematology
07/28/24 07/29/24 07/30/24
14:57 05:37 06:52
WBC 7.4 6.9 5.8
Lab Results - Chemistry
07/28/24 07/29/24 07/30/24
14:57 05:37 06:52
BUN 27 H 23 H 17
Creatinine 0.9 0.7 0.8
Estimated Creat Clear 42 54 47
Albumin 3.4 L
Microbiology Results
07/28/24 21:18 MRSA Screen - Final
Nose Staph aureus MRSA
07/28/24 14:57 Wound Culture - Final
Leg - Left Staph aureus MRSA
Gram Stain - Final
Therapeutic Drug Monitoring
Random Vancomycin 8.0 ug/ml 07/29/24 05:37
[2024-07-31 08:01] LABS: Vancomycin Peak 42.1 ug/ml (18-26)
--- NOTE | 2024-07-31 09:00 | W.PN.HOSP.TC ---
Today's Communication/Plan
-
IV antibiotics.
Assessment / Plan
Assessment / Plan
Physical exam:
General: Acutely ill. Nontoxic
HEENT: Normocephalic, Atraumatic and Moist Mucous Membranes
Respiratory: Clear to Auscultation; Negative Wheezes, Rales or Rhonchi
Cardiac: Regular Rhythm and S1/S2
GI: Soft, Nontender and Nondistended
Musculoskeletal: Left lower extremity erythema with warmth and tenderness surrounding sutures with some improvement, no fluctuance appreciated or crepitus. No Clubbing, No Cyanosis and some Edema.
Neuro: Awake, Alert and Disoriented
Psych: Calm
A/P:
Impression:
Acute cellulitis left lower extremity post Mohs surgery due to MRSA.
Senile vs Alzheimer's dementia, at risk of delirium/sundowning
Sacral decubitus stage I, present on admission
MRSA colonized
Conditions prior to presentation:
Hyperlipidemia
Paroxysmal atrial fibrillation-anticoagulation discontinued on recent admission due to risk benefit
Vitamin D deficiency
Hyperparathyroidism status post parathyroidectomy 2018
CLL
PLAN:
Cont IV antibiotics but streamline to IV vancomycin and DC Zosyn. Should be able to switch to oral antibiotics over the next couple of days if blood cultures are negative and cellulitis improving.
Vanco level suspected falsely elevated, so we will check a trough level and reevaluate.
Off IV fluids
Wound care consult appreciated
Pain control
Wound cultures with MRSA and Gram stain gram-positive cocci and gram-positive rods.
Obtain blood cultures to rule out bacteremia--> no growth so far but continue to monitor.
CT of the left lower extremity ruled out deep infection/abscess.
Continue to monitor clinically
PT OT recommend skilled rehab
Lovenox for DVT prophylaxis
Try to reach out family but appears to be wrong number.
CODE STATUS DNR
Anticipated Discharge: 24 - 48 hours
Subjective/Interval History
-
Date of Service: July 31, 2024
Patient seen and examined. Alert but pleasantly disoriented. Afebrile.
Objective Data
-
Vital Signs:
Vital Signs
Temp Pulse Resp BP Pulse Ox
98.3 F 65 16 126/67 96
07/30/24 23:26 07/30/24 23:26 07/30/24 23:26 07/30/24 23:26 07/30/24 23:26
I&O
07/30/24 07/31/24 08/01/24
06:59 06:59 06:59
Intake Total 1000 / 1000 1250 / 1250
Balance 1000 / 1000 1250 / 1250
[2024-07-31] MEDS: PACERONE 200 MG PO (09:12)
[2024-07-31] MEDS: VITAMIN D3 (cholecalciferol) 25 MCG PO (09:13)
[2024-07-31] MEDS: TYLENOL 650 MG PO ×5 (09:13→23:03)
[2024-07-31] MEDS: SEROQUEL 12.5 MG PO (09:13)
[2024-07-31] MEDS: COSOPT EYE DROPS 1 DROP BOTH EYES ×2 (09:15→20:21)
[2024-07-31 15:00] VITALS: BP 109/59
[2024-07-31] MEDS: LOVENOX 40 MG SC (18:18)
[2024-07-31] MEDS: ARICEPT 10 MG PO (23:03)
[2024-07-31] MEDS: XALATAN OPHTHALMIC SOLUTION 1 DROP BOTH EYES (23:03)
[2024-07-31 23:20] VITALS: BP 115/51
[2024-08-01] MEDS: TYLENOL PO (05:01)
[2024-08-01 05:52] LABS: Vancomycin Trough 8.5 ug/ml (5-20)
[2024-08-01] MEDS: VANCOCIN 200 IV (05:56)
--- NOTE | 2024-08-01 06:04 | PTCARENOTE ---
Pt sleeping intermittently t/o the night. Pt ambulatory to bathroom x5 t/o the night with some stress inc noted. Pt denies any complaints. Vital signs stable. Bed alarm in place. Will continue to monitor.
[2024-08-01 07:22] VITALS: BP 139/69
--- NOTE | 2024-08-01 07:38 | PHA.VAN.FU ---
Vancomycin Assessment / Plan
- Assessment
Renal Function: No New Labs Today
In the past 24 hrs, patient has been: Afebrile
Concomitant Antimicrobials: NONE
- Assessment - Trough Based Monitoring
Trough Value: 8.5 ~ 24 hours afterlast 1000 mg dose
Level Comments: yesterday's peak of 42 was drawn ~15 post infusion and is falsely elevated
- Dosing Plan
Continue: continue vancomycin 1000 mg q24 h for now, but will give extra 500 mg
Dosing Comments: will give an extra 500 mg x 1 to boost trough
based on linear kinetics, 1250 mg q24h predicts a trough of 10.6; 1500 mg q24h predicts a trough close to 13.
Will give an extra 500 mg this AM and recheck trough tomorrow AM and reassess.
- Monitoring Plan
Random Level: 08/02/24 0600
- Follow Up
Pharmacy will continue to follow.
Vancomycin Follow UP
- -
Patient Age: 83
Patient Sex: Female
Vancomycin Day #: 5
Indication: Skin And Soft Tissue
Requesting Provider: Dr. Brooks
Pertinent Antimicrobial Allergies:
amoxicillin - unknown
Height / Weight:
Height 5 ft 7 in
Actual Weight 56.444 kg
- Vital Signs / Lab Results
Temp Pulse Resp BP Pulse Ox
97.6 F 66 16 139/69 95
08/01/24 07:22 08/01/24 07:22 08/01/24 07:22 08/01/24 07:22 08/01/24 07:22
Lab Results - Hematology
07/30/24
06:52
WBC 5.8
Lab Results - Chemistry
07/30/24
06:52
BUN 17
Creatinine 0.8
Estimated Creat Clear 47
Microbiology Results
07/30/24 13:30 Blood Culture - Preliminary
Blood/Venous No Growth in 24 hours- Final report to follow
07/30/24 12:24 Blood Culture - Preliminary
Blood/Venous No Growth in 24 hours- Final report to follow
07/28/24 21:18 MRSA Screen - Final
Nose Staph aureus MRSA
07/28/24 14:57 Wound Culture - Final
Leg - Left Staph aureus MRSA
Gram Stain - Final
Therapeutic Drug Monitoring
Vancomycin Peak 42.1 ug/ml (18-26) H* 07/31/24 06:44
Vancomycin Trough 8.5 ug/ml (5-20) 08/01/24 05:10
Random Vancomycin 8.0 ug/ml 07/29/24 05:37
[2024-08-01] MEDS: PACERONE 200 MG PO (08:51)
[2024-08-01] MEDS: VITAMIN D3 (cholecalciferol) 25 MCG PO (08:52)
[2024-08-01] MEDS: COSOPT EYE DROPS 1 DROP BOTH EYES ×2 (08:52→20:44)
[2024-08-01] MEDS: SEROQUEL 12.5 MG PO (08:52)
[2024-08-01] MEDS: TYLENOL 650 MG PO ×4 (08:53→20:44)
[2024-08-01] MEDS: VANCOCIN HCL 500 MG 100 IV (09:03)
[2024-08-01 10:04] LABS: Blood Urea Nitrogen 18 mg/dl (7-17); Calcium 9.1 mg/dl (8.4-10.2); Carbon Dioxide 31 mmol/L (22-30); Chloride 101 mmol/L (98-107); Estimated Creatinine Clearance 54 ml/min; Glucose 82 mg/dl (70-99); Potassium 4.6 mmol/L (3.5-5.1); Sodium 140 mmol/L (135-145); eGFR > 60.00
[2024-08-01 10:05] LABS: Mean Corp Hgb Conc. 32.4 g/dL (33.0-37.0); Mean Corpuscular Volume 95.8 fL (81.0-99.0); Mean Platelet Volume 9.2 fL (7.4-10.4); Platelet Count 252 10^3/uL (130-400); Red Blood Cell Count 3.55 10^6/uL (4.20-5.40); White Blood Cell Count 4.6 10^3/uL (4.8-10.8)
[2024-08-01 11:09] VITALS: BP 128/59; PULSE 59; O2SAT 96
--- NOTE | 2024-08-01 13:58 | CON.ID ---
Addendum entered and electronically signed by eKllee Mg MD 08/01/24 14:53:
held waiting for [facility] for over 9 minutes with no answer. hung up.
patient will need outpatient follow up with her surgeon arranged before discharge - ideally before thursday
Original Note:
Consultation
-
Date/Time Consultation Requested: 08/01/24 11:01
Date/Time Consultation Performed: 08/01/24 13:58
Requesting Provider: Dr Galindo
Performing Provider: Dr Mg
Reason for Consultation: left leg SSI from MRSA
Chief Complaint / Past History
Chief Complaint
Left lower extremity erythema
History of Present Illness
Ms Mata is an 83 year old female with history of CLL, dementia who presented here for left lower extremity erythema. History obtained by chart review. Starting 07/21/24 patient developed left leg erythema, tenderness starting post Mohs
surgery. No fevers or chills. Was prescribed antibiotics however seems that they were not taken.
Since arrival here she has been afebrile, bp stable, wbc initially 7.4 now 4.6, hgb 11.0, plt 252, cr 0.9 now 0.7, t bili 0.8, ast 19, alt 14, alk phos 86, 07/29 CT lower extremity: cellulitis, no evidence of osteo, MRI done read pending, currently
on vancomycin, ID is consulted for assistance with management.
Past History
Additional Past Medical History:
hyperparathyroidism
osteoarthritis
depression
HLD
CLL
osteo
GERD
Additional Past Surgical History:
b/l cataract surgery
left oophorectomy
cosmetic facial surgery
abdominoplasty
b/l breast lift and right berate reduction
parathyroidectomy
Allergy History:
amoxicillin Allergy (Verified 07/28/24 18:27)
SEE BELOW
Choline Allergy (Uncoded 06/13/24 08:42)
Cholinesterase Deficiency
Medications Reviewed: Yes
Social History
Tobacco: Other (unable to obtain social history due to condition of the patient)
Family History
Family History: Not Pertinent
Review of Systems
Review of Systems
unable to obtain due to the condition of the patient
Vital Signs
Temp Pulse Resp BP Pulse Ox
97.6 F 66 16 139/69 95
08/01/24 07:22 08/01/24 07:22 08/01/24 07:22 08/01/24 07:22 08/01/24 07:22
Physical Exam
Physical Exam
Constitutional: No Acute Distress
Cardiovascular: Regular Rate and S1/S2; Negative Murmur or Rub
Pulmonary: Clear and Symmetric; Negative Wheezes, Rales or Rhonchi
Gastrointestinal: Soft, Non Tender, Non Distended and Normal Bowel Sounds
Skin: Warm and Dry; Negative Rash or Jaundice
Wound: Other (about 8 cm long incision closed with sutures draining small amount of purulent fluid)
Lab / Diagnostic Study Results
08/01/24 08:57
08/01/24 08:57
Abs Immat Gran (auto) 0.0 10^3/uL (0-0.05) 07/30/24 06:52
Absolute Neuts (auto) 3.4 10^3/uL (1.4-6.5) 07/30/24 06:52
Absolute Lymphs (auto) 1.4 10^3/uL (1.2-3.4) 07/30/24 06:52
Absolute Monos (auto) 0.8 10^3/uL (0.1-0.6) H 07/30/24 06:52
Absolute Basos (auto) 0.0 10^3/uL (0-0.2) 07/30/24 06:52
Immature Gran % 0.7 % (0-0.5) H 07/30/24 06:52
Neutrophils % 58.0 % (42.2-75.2) 07/30/24 06:52
Lymphocytes % 24.2 % (20.5-51.1) 07/30/24 06:52
Monocytes % 13.5 % (1.7-9.3) H 07/30/24 06:52
Eosinophils % 3.1 % (0-6) 07/30/24 06:52
Basophils % 0.5 % (0-2) 07/30/24 06:52
Microbiology Results
Micro:
07/30/24 13:30 Blood Culture - Preliminary
Blood/Venous No Growth in 48 hours- Final report to follow
07/30/24 12:24 Blood Culture - Preliminary
Blood/Venous No Growth in 48 hours- Final report to follow
07/28/24 21:18 MRSA Screen - Final
Nose Staph aureus MRSA
07/28/24 14:57 Wound Culture - Final
Leg - Left Staph aureus MRSA
Gram Stain - Final
Assessment / Plan
Purulent Surgical site infection
Reported allergy to amoxicillin - unknown
- blood cultures x2 no growth to date, would not generally recommend blood cultures for cellulitis unless patient in shock
- colonized with MRSA
- agree with MRI - follow up report
- not convinced that this was a mohs procedure as large wound over 8 cm in longest dimension
- tried to call son at number listed on the chart lenny addison [phone], however it is disconnected; called [facility] to see if they have another contact number, spoke with sharlene and got lenny number [phone]; amparo stafford is sister:
[phone]. Called and spoke with Lenny he is coming up tomorrow for a visit and gave me the [facility] phone number - [phone]; left a message for her surgeon.
- if there is a fluid collection, would suggest general surgery consult
- currently on vancomycin - follow todays culture
--- NOTE | 2024-08-01 14:15 | W.PN.HOSP.TC ---
Today's Communication/Plan
-
see note
Assessment / Plan
Assessment / Plan
1. Acute left leg cellulitis from MRSA
s/p Moh's surgery on 07/21
-Patient underwent Mohs surgery on 07/21 dermatology office. Patient was not taking postprocedural antibiotic as prescribed
-Came into ER for new onset of left leg swelling/erythema
-CT of left lower extremity on 07/28 did not show any deeper fluid collection
-Superficial wound culture has been growing MRSA
-Patient is maintained on IV vancomycin from 07/28 - Day 4 today
-On exam still have significant erythema/minimal purulent drainage on exam
-Follow-up MRI of lower extremity has been ordered
-ID have been consulted for further help
2. Dementia -Alzheimer vs senile
-No behavioral issues reported
3. Sacral decubitus stage I, present on admission
-continue wound care
History of chronic lymphocytic leukemia
Hyperlipidemia
Paroxysmal atrial fibrillation-anticoagulation discontinued on recent admission due to risk benefit
Vitamin D deficiency
Hyperparathyroidism status post parathyroidectomy 2018
Lovenox for DVT prophylaxis
CODE STATUS DNR
Total time spent : 53mins
Anticipated Discharge: 24 - 48 hours
Subjective/Interval History
-
Date of Service: August 01, 2024
afebrile in night
no other issues
Objective Data
-
Labs:
Laboratory Results
08/01/24
08:57
WBC 4.6 L
Hgb 11.0 L
Hct 34.0 L
Plt Count 252 D
Sodium 140
Potassium 4.6
Chloride 101
Carbon Dioxide 31 H
BUN 18 H
Creatinine 0.7
Glucose 82
Calcium 9.1
Vital Signs:
Vital Signs
Temp Pulse Resp BP Pulse Ox
97.6 F 66 16 139/69 95
08/01/24 07:22 08/01/24 07:22 08/01/24 07:22 08/01/24 07:22 08/01/24 07:22
I&O
07/31/24 08/01/24 08/02/24
06:59 06:59 06:59
Intake Total 1250 / 1250 920 / 920
Balance 1250 / 1250 920 / 920
Review of Systems
-
Respiratory: Reports No Symptoms
Cardiac: Reports No Symptoms
Abdomen/GI: Reports No Symptoms
Physical Exam
-
General: No Apparent Distress
HEENT: Negative Oxygen
Respiratory: Clear to Auscultation
Cardiac: S1/S2; Negative Murmur, Rub or Gallop
GI: Soft, Nontender and Nondistended; Negative Organomegaly
Skin: Other (Left leg incision site, erythema, minimal purulent drainage)
Neuro: Awake and Nonfocal/Grossly Intact
Psych: Calm
[2024-08-01 15:40] VITALS: BP 114/57
--- NOTE | 2024-08-01 15:47 | CM ---
CM confirmed with [facility] that patient would be able to return to SNF but will need auth. CM reviewed with physician and will discuss options for SNF/auth tomorrow with patient. CM will continue to follow for discharge planning needs.
Plan; SNF/auth needed
[2024-08-01] MEDS: LOVENOX 40 MG SC (17:58)
[2024-08-01] MEDS: LIPITOR 10 MG PO (18:00)
[2024-08-01] MEDS: ARICEPT 10 MG PO (20:45)
[2024-08-01] MEDS: XALATAN OPHTHALMIC SOLUTION 1 DROP BOTH EYES (20:45)
[2024-08-01 23:57] VITALS: BP 130/58
[2024-08-02] MEDS: TYLENOL PO ×2 (00:36→04:17)
[2024-08-02] MEDS: VANCOCIN 200 IV (05:35)
[2024-08-02 06:12] LABS: Vancomycin Random 10.7 ug/ml
[2024-08-02 06:16] LABS: Hematocrit 31.8 % (37.0-47.0); Hemoglobin 10.3 g/dL (12.0-16.0); Mean Corp Hgb Conc. 32.4 g/dL (33.0-37.0); Mean Corpuscular Hgb 30.4 pg (27.0-31.0); Mean Corpuscular Volume 93.8 fL (81.0-99.0); Mean Platelet Volume 9.3 fL (7.4-10.4); Platelet Count 241 10^3/uL (130-400); Red Blood Cell Count 3.39 10^6/uL (4.20-5.40); Red Cell Dist. Width 13.9 % (11.5-14.5); White Blood Cell Count 6.5 10^3/uL (4.8-10.8)
[2024-08-02 06:23] LABS: Blood Urea Nitrogen 22 mg/dl (7-17); Carbon Dioxide 29 mmol/L (22-30); Chloride 102 mmol/L (98-107); Estimated Creatinine Clearance 54 ml/min; Glucose 81 mg/dl (70-99); Potassium 4.3 mmol/L (3.5-5.1); Sodium 139 mmol/L (135-145); eGFR > 60.00
[2024-08-02 07:43] VITALS: BP 135/69
--- NOTE | 2024-08-02 08:17 | PHA.VAN.FU ---
Vancomycin Assessment / Plan
- Assessment
Renal Function: Stable
WBC's are: WNL
In the past 24 hrs, patient has been: Afebrile
- Assessment - Therapeutic Drug Monitoring
Random Level: 10.7 - appropriately increased following additional 500mg booster yesterday
- Dosing Plan
Adjust Regimen to: Vanc 1250mg Q24H starting 08/03 0600
Dosing Comments: give additional 500mg booster as did not receive increased dosing today
Unable to calculate half-life as peak not drawn appropriately
Will continue with Q24H interval and increase dosing
- Monitoring Plan
No level(s) ordered at this time: consider levels in next few days
- Follow Up
Pharmacy will continue to follow.
Vancomycin Follow UP
- -
Patient Age: 83
Patient Sex: Female
Vancomycin Day #: 6
Indication: Skin And Soft Tissue
Requesting Provider: Dr. Brooks / Saurav
Pertinent Antimicrobial Allergies:
amoxicillin - unknown
Height / Weight:
Height 5 ft 7 in
Actual Weight 56.444 kg
- Vital Signs / Lab Results
Temp Pulse Resp BP Pulse Ox
97.9 F 66 14 135/69 95
08/02/24 07:43 08/02/24 07:43 08/02/24 07:43 08/02/24 07:43 08/02/24 07:43
Lab Results - Hematology
07/30/24 08/01/24 08/02/24
06:52 08:57 05:30
WBC 5.8 4.6 L 6.5
Lab Results - Chemistry
07/30/24 08/01/24 08/02/24
06:52 08:57 05:30
BUN 17 18 H 22 H
Creatinine 0.8 0.7 0.7
Estimated Creat Clear 47 54 54
Microbiology Results
08/01/24 14:22 Gram Stain - Preliminary
Leg - Left
07/30/24 13:30 Blood Culture - Preliminary
Blood/Venous No Growth in 48 hours- Final report to follow
07/30/24 12:24 Blood Culture - Preliminary
Blood/Venous No Growth in 48 hours- Final report to follow
Therapeutic Drug Monitoring
Vancomycin Peak 42.1 ug/ml (18-26) H* 07/31/24 06:44
Vancomycin Trough 8.5 ug/ml (5-20) 08/01/24 05:10
Random Vancomycin 10.7 ug/ml 08/02/24 05:30
[2024-08-02] MEDS: TYLENOL 650 MG PO ×4 (09:35→21:57)
[2024-08-02] MEDS: SEROQUEL 12.5 MG PO (09:36)
[2024-08-02] MEDS: PACERONE 200 MG PO (09:36)
[2024-08-02] MEDS: VITAMIN D3 (cholecalciferol) 25 MCG PO (09:37)
[2024-08-02] MEDS: COSOPT EYE DROPS 1 DROP BOTH EYES ×2 (09:37→20:55)
[2024-08-02] MEDS: VANCOCIN HCL 500 MG 100 IV (09:42)
--- NOTE | 2024-08-02 10:03 | W.PN.ID1 ---
Date of Service
Date of Service: August 02, 2024
Today's Communication
- switched to bactrim 1 DS tab BID plan another 14 days 08/02-08/15
- bmp in 1 week
- follow up with her surgeon within the week
- stable for dc from ID perspective
Assessment / Plan
Superficial, Purulent Surgical site infection
Reported allergy to amoxicillin - unknown
- blood cultures x2 no growth to date
- colonized with MRSA
- MRI no deep collection, myositis or osteomyelitis
- chart updated with current contact information for son anshul, notified cm
- switched to bactrim 1 DS tab BID plan another 14 days 08/02-08/15
- bmp in 1 week
- follow up with her surgeon within the week
- stable for dc from ID perspective
Chief Complaint
-: Other (surgical site infection)
Subjective / Review of Systems
afebrile
urinary frequency overnight
erythema over the surgical site persists - no further purulent drainage
Vital Signs / Physical Exam
Vital Signs
Vital Signs
Temp Pulse Resp BP Pulse Ox
97.9 F 66 14 135/69 95
08/02/24 07:43 08/02/24 07:43 08/02/24 07:43 08/02/24 07:43 08/02/24 07:43
Physical Exam
Constitutional: No Acute Distress
Cardiovascular: Regular Rate and S1/S2; Negative Murmur or Rub
Pulmonary: Clear and Symmetric; Negative Wheezes or Rales
Gastrointestinal: Soft, Non Tender, Non Distended and Normal Bowel Sounds
Skin: Warm and Dry; Negative Rash or Jaundice
Wound: Other (surgical site with surrounding erythema, no further purulent drainage, no dehiscence )
Objective Data
Lab Data
Lab Results
08/02/24 05:30
08/02/24 05:30
Estimated Creat Clear 54 ml/min 08/02/24 05:30
Total Bilirubin 0.8 mg/dl (0.2-1.3) 07/28/24 14:57
AST 19 U/L (14-36) 07/28/24 14:57
ALT 14 U/L (0-35) 07/28/24 14:57
Alkaline Phosphatase 86 U/L (38-126) 07/28/24 14:57
Most recent labs reviewed.
Micro Results:
08/01/24 14:22 Wound Culture - Preliminary
Leg - Left Staph aureus MRSA
Gram Stain - Preliminary
07/30/24 13:30 Blood Culture - Preliminary
Blood/Venous No Growth in 48 hours- Final report to follow
07/30/24 12:24 Blood Culture - Preliminary
Blood/Venous No Growth in 48 hours- Final report to follow
07/28/24 21:18 MRSA Screen - Final
Nose Staph aureus MRSA
07/28/24 14:57 Wound Culture - Final
Leg - Left Staph aureus MRSA
Gram Stain - Final
--- NOTE | 2024-08-02 13:01 | W.PN.HOSP.TC ---
Today's Communication/Plan
-
monitor BMP on bactrim
hold sedative meds
possible d.c in 24hrs
Assessment / Plan
Assessment / Plan
1. Acute left leg cellulitis from MRSA
s/p Moh's surgery on 07/21
-Patient underwent Mohs surgery on 07/21 dermatology office. Patient was not taking postprocedural antibiotic as prescribed
-Came into ER for new onset of left leg swelling/erythema
-CT of left lower extremity on 07/28 did not show any deeper fluid collection
-Superficial wound culture has been growing MRSA
-Patient is maintained on IV vancomycin from 07/28 - Day 4 today
-On exam still have significant erythema/minimal purulent drainage on exam
-MRI of left leg did not show any abscess/osteomyelitis
-IV vancomycin has been changed to oral bactrim
-Will discuss finding with primary surgeon as well
2. Dementia -Alzheimer vs senile
-Patient somewhat somnolent today, hold as needed Xanax and morning Seroquel for now
-No behavioral issues reported
3. Sacral decubitus stage I, present on admission
-continue wound care
History of chronic lymphocytic leukemia
Hyperlipidemia
Paroxysmal atrial fibrillation-anticoagulation discontinued on recent admission due to risk benefit
Vitamin D deficiency
Hyperparathyroidism status post parathyroidectomy 2018
Lovenox for DVT prophylaxis
CODE STATUS DNR
Discussed care with ID
Anticipated Discharge: 24 - 48 hours
Subjective/Interval History
-
Date of Service: August 02, 2024
afebrile in night
no reported issues overnight
Objective Data
-
Labs:
Laboratory Results
08/02/24
05:30
WBC 6.5
Hgb 10.3 L
Hct 31.8 L
Plt Count 241
Sodium 139
Potassium 4.3
Chloride 102
Carbon Dioxide 29
BUN 22 H
Creatinine 0.7
Glucose 81
Calcium 9.0
Vital Signs:
Vital Signs
Temp Pulse Resp BP Pulse Ox
97.9 F 66 14 135/69 95
08/02/24 07:43 08/02/24 07:43 08/02/24 07:43 08/02/24 07:43 08/02/24 07:43
I&O
08/01/24 08/02/24 08/03/24
06:59 06:59 06:59
Intake Total 920 / 920 1320 / 1320
Balance 920 / 920 1320 / 1320
Review of Systems
-
Respiratory: Reports No Symptoms
Cardiac: Reports No Symptoms
Abdomen/GI: Reports No Symptoms
Physical Exam
-
General: Negative Appears in Distress
HEENT: Negative Oxygen
Respiratory: Clear to Auscultation
Cardiac: Regular Rhythm and S1/S2; Negative Murmur
GI: Soft, Nontender and Nondistended
Neuro: Awake and Alert
[2024-08-02] MEDS: BACTRIM DS 800 MG/160 MG 1 TABLET PO ×2 (13:10→21:57)
[2024-08-02 15:25] VITALS: BP 106/57
[2024-08-02] MEDS: LOVENOX 40 MG SC (18:38)
[2024-08-02] MEDS: XALATAN OPHTHALMIC SOLUTION 1 DROP BOTH EYES (21:57)
[2024-08-02] MEDS: ARICEPT 10 MG PO (21:57)
[2024-08-02 23:17] VITALS: BP 142/74
--- NOTE | 2024-08-03 03:32 | DOWNTIME ---
There was a [employer] Client Subpoena Server Downtime on 08/03/2024 from 0100 to 08/03/2024 at 0300. Downtime documentation of patient's care, including medication administrations, has been reconciled in the electronic record per guidelines. Refer to the
patient's paper chart under the miscellaneous tab to see printed paper medication records and downtime forms.
[2024-08-03] MEDS: TYLENOL PO ×4 (04:37→16:14)
[2024-08-03 07:25] VITALS: BP 126/63
[2024-08-03 07:31] LABS: Hematocrit 31.8 % (37.0-47.0); Hemoglobin 10.7 g/dL (12.0-16.0); Mean Corp Hgb Conc. 33.6 g/dL (33.0-37.0); Mean Corpuscular Hgb 32.2 pg (27.0-31.0); Mean Corpuscular Volume 95.8 fL (81.0-99.0); Mean Platelet Volume 9.2 fL (7.4-10.4); Platelet Count 226 10^3/uL (130-400); Red Blood Cell Count 3.32 10^6/uL (4.20-5.40); Red Cell Dist. Width 13.9 % (11.5-14.5); White Blood Cell Count 10.1 10^3/uL (4.8-10.8)
[2024-08-03 08:10] LABS: Blood Urea Nitrogen 20 mg/dl (7-17); Calcium 8.7 mg/dl (8.4-10.2); Carbon Dioxide 26 mmol/L (22-30); Chloride 102 mmol/L (98-107); Estimated Creatinine Clearance 54 ml/min; Glucose 77 mg/dl (70-99); Potassium 4.2 mmol/L (3.5-5.1); Sodium 140 mmol/L (135-145); eGFR > 60.00
--- NOTE | 2024-08-03 08:27 | CM ---
Addendum entered by Destiny Lewis 08/03/24 14:33:
certified in total [id number] 08/04/24- 08/10/24 update provided to Neida at [facility]. Patient for transfer pending physician assessment tomorrow. Facility would request arrival 11-12 pm. CM will update patient son and signed form, IMM placed on
chart. transportation forms will be placed on chart. CM will continue to follow for discharge planning needs.
Addendum entered by Destiny Lewis 08/03/24 14:22:
Patient son Lenny aware. WALESKA started the auth in [employer] and pending reference number is [id number]. CM will submit clinical information.
Addendum entered by Destiny Lewis 08/03/24 12:59:
Patient accepted to go to [facility]; first available bed is tomorrow, call report [phone]/fax [phone] when auth approval received. CM will call to start auth with Lucia. CM will update patient son and physician.
Original Note:
WALESKA received call from [facility] 08/02/24 that the facility; [facility] has concerns about accepting patient back due to being unable to reach patient son. CM called to updated contact information and patient son Lenny answered and indicated that he
would be able to talk tomorrow am and needed to go to work. CM provided phone contact to the liaison and she will contact to review plan for return to SNF.
[2024-08-03] MEDS: BACTRIM DS 800 MG/160 MG 1 TABLET PO ×2 (08:37→20:43)
[2024-08-03] MEDS: VITAMIN D3 (cholecalciferol) 25 MCG PO (08:37)
[2024-08-03] MEDS: TYLENOL 650 MG PO ×2 (08:37→20:42)
[2024-08-03] MEDS: PACERONE 200 MG PO (08:37)
[2024-08-03] MEDS: COSOPT EYE DROPS 1 DROP BOTH EYES ×2 (08:38→20:40)
--- NOTE | 2024-08-03 13:24 | VATNOTE ---
During routine assessment, redness, swelling, and palpable venous cord of approx. 1' noted. Pt denies pain. IV discontinued and heat applied to site. New IV access established.
--- NOTE | 2024-08-03 14:03 | W.PN.HOSP.TC ---
Today's Communication/Plan
-
snf rehab tomorrow
maintain on oral bactrim
Assessment / Plan
Assessment / Plan
1. Acute left leg cellulitis from MRSA
s/p Moh's surgery on 07/21
-Patient underwent Mohs surgery on 07/21 dermatology office. Patient was not taking postprocedural antibiotic as prescribed
-Came into ER for new onset of left leg swelling/erythema
-CT of left lower extremity on 07/28 did not show any deeper fluid collection
-Superficial wound culture has been growing MRSA
-MRI of left leg did not show any abscess/osteomyelitis
-IV vancomycin has been changed to oral Bactrim, last dose 08/15
-Contacted primary Tub Puller and discussed findings today. He will f/u in office in a week
2. Dementia -Alzheimer vs senile
-Patient somewhat somnolent today, hold as needed Xanax and morning Seroquel for now
-No behavioral issues reported
3. Sacral decubitus stage I, present on admission
-continue wound care
History of chronic lymphocytic leukemia
Hyperlipidemia
Paroxysmal atrial fibrillation-anticoagulation discontinued on recent admission due to risk benefit
Vitamin D deficiency
Hyperparathyroidism status post parathyroidectomy 2018
Lovenox for DVT prophylaxis
CODE STATUS DNR
Care discussed with primary senior pensions administrator
Discussed with Son _ GEORGE as well
Anticipated Discharge: Within 24 hours
Subjective/Interval History
-
Date of Service: August 03, 2024
Patient denies having any problems
resting comfortable in bed
mentation better
Objective Data
-
Labs:
Laboratory Results
08/03/24
07:02
WBC 10.1
Hgb 10.7 L
Hct 31.8 L
Plt Count 226
Sodium 140
Potassium 4.2
Chloride 102
Carbon Dioxide 26
BUN 20 H
Creatinine 0.7
Glucose 77
Calcium 8.7
Vital Signs:
Vital Signs
Temp Pulse Resp BP Pulse Ox
97.7 F 67 17 126/63 96
08/03/24 07:25 08/03/24 07:25 08/03/24 07:25 08/03/24 07:25 08/03/24 07:25
I&O
08/02/24 08/03/24 08/04/24
06:59 06:59 06:59
Intake Total 1320 / 1320 720 / 720
Balance 1320 / 1320 720 / 720
Review of Systems
-
Respiratory: Reports No Symptoms
Cardiac: Reports No Symptoms
Abdomen/GI: Reports No Symptoms
Physical Exam
-
General: Negative Appears in Distress
HEENT: Negative Oxygen
Respiratory: Clear to Auscultation
Cardiac: Regular Rhythm and S1/S2; Negative Murmur
GI: Soft, Nontender and Nondistended
Neuro: Awake and Alert
[2024-08-03 15:41] VITALS: BP 116/56
[2024-08-03] MEDS: LOVENOX 40 MG SC (17:23)
[2024-08-03] MEDS: XALATAN OPHTHALMIC SOLUTION 1 DROP BOTH EYES (20:40)
[2024-08-03] MEDS: ARICEPT 10 MG PO (20:43)
[2024-08-03] MEDS: LIPITOR 10 MG PO (20:44)
[2024-08-03 23:30] VITALS: BP 130/78
[2024-08-04] MEDS: TYLENOL PO ×2 (00:05→04:30)
[2024-08-04 06:28] LABS: Hematocrit 30.9 % (37.0-47.0); Hemoglobin 10.6 g/dL (12.0-16.0); Mean Corp Hgb Conc. 34.3 g/dL (33.0-37.0); Mean Corpuscular Hgb 32.6 pg (27.0-31.0); Mean Corpuscular Volume 95.1 fL (81.0-99.0); Mean Platelet Volume 9.1 fL (7.4-10.4); Platelet Count 206 10^3/uL (130-400); Red Blood Cell Count 3.25 10^6/uL (4.20-5.40); Red Cell Dist. Width 13.9 % (11.5-14.5)
[2024-08-04 06:57] LABS: Blood Urea Nitrogen 18 mg/dl (7-17); Calcium 8.8 mg/dl (8.4-10.2); Carbon Dioxide 26 mmol/L (22-30); Chloride 103 mmol/L (98-107); Estimated Creatinine Clearance 47 ml/min; Glucose 82 mg/dl (70-99); Potassium 4.2 mmol/L (3.5-5.1); Sodium 141 mmol/L (135-145); eGFR > 60.00
[2024-08-04 07:00] VITALS: BP 147/71
[2024-08-04] MEDS: TYLENOL 650 MG PO ×3 (08:23→17:01)
[2024-08-04] MEDS: PACERONE 200 MG PO (08:25)
[2024-08-04] MEDS: BACTRIM DS 800 MG/160 MG 1 TABLET PO (08:25)
[2024-08-04] MEDS: VITAMIN D3 (cholecalciferol) 25 MCG PO (08:25)
[2024-08-04] MEDS: COSOPT EYE DROPS 1 DROP BOTH EYES (08:27)
--- NOTE | 2024-08-04 08:43 | VATNOTE ---
Reported right arm phlebitis resolved. No evidence of inflammation or cord.
--- NOTE | 2024-08-04 13:45 | W.PN.ID1 ---
Date of Service
Date of Service: August 04, 2024
Today's Communication
- switched to bactrim 1 DS tab BID plan another 14 days 08/02-08/15
- bmp in 1 week
- follow up with her surgeon within the week
- stable for dc from ID perspective
Assessment / Plan
Superficial, Purulent Surgical site infection
Reported allergy to amoxicillin - unknown
- blood cultures x2 no growth to date
- wound culture - MRSA
- MRI no deep collection, myositis or osteomyelitis
- switched to bactrim 1 DS tab BID plan another 14 days 08/02-08/15
- bmp in 1 week
- follow up with her surgeon within the week
- stable for dc from ID perspective
Chief Complaint
-: Other (surgical site infection)
Subjective / Review of Systems
afebrile
much improved, though not resolved erythema
tolerating current therapies
Vital Signs / Physical Exam
Vital Signs
Vital Signs
Temp Pulse Resp BP Pulse Ox
98.2 F 64 16 147/71 97
08/04/24 07:00 08/04/24 08:25 08/04/24 07:00 08/04/24 08:25 08/04/24 07:00
Physical Exam
Constitutional: No Acute Distress
Cardiovascular: Regular Rate and S1/S2; Negative Murmur or Rub
Pulmonary: Clear and Symmetric; Negative Wheezes or Rales
Gastrointestinal: Soft, Non Tender, Non Distended and Normal Bowel Sounds
Extremities: Other (surgical site - no dehiscence, much less erythema, mildly warm)
Skin: Warm and Dry; Negative Rash or Jaundice
Objective Data
Lab Data
Lab Results
08/04/24 06:11
08/04/24 06:11
Estimated Creat Clear 47 ml/min 08/04/24 06:11
Total Bilirubin 0.8 mg/dl (0.2-1.3) 07/28/24 14:57
AST 19 U/L (14-36) 07/28/24 14:57
ALT 14 U/L (0-35) 07/28/24 14:57
Alkaline Phosphatase 86 U/L (38-126) 07/28/24 14:57
Most recent labs reviewed.
Micro Results:
07/30/24 13:30 Blood Culture - Final
Blood/Venous No Growth - Final Report
07/30/24 12:24 Blood Culture - Final
Blood/Venous No Growth - Final Report
08/01/24 14:22 Wound Culture - Final
Leg - Left Staph aureus MRSA
Gram Stain - Final
07/28/24 21:18 MRSA Screen - Final
Nose Staph aureus MRSA
07/28/24 14:57 Wound Culture - Final
Leg - Left Staph aureus MRSA
Gram Stain - Final
--- NOTE | 2024-08-04 13:57 | W.PN.HOSP.TC ---
Today's Communication/Plan
-
d/c once SNF bed available
Assessment / Plan
Assessment / Plan
1. Acute left leg cellulitis from MRSA
s/p Moh's surgery on 07/21
-Patient underwent Mohs surgery on 07/21 dermatology office. Patient was not taking postprocedural antibiotic as prescribed
-Came into ER for new onset of left leg swelling/erythema
-CT of left lower extremity on 07/28 did not show any deeper fluid collection
-Superficial wound culture has been growing MRSA
-MRI of left leg did not show any abscess/osteomyelitis
-IV vancomycin has been changed to oral Bactrim, last dose 08/15
-Contacted primary Inspector [employer] and discussed findings today. He will f/u in office in a week
2. Dementia -Alzheimer vs senile
-Patient somewhat somnolent today, hold as needed Xanax and morning Seroquel for now
-No behavioral issues reported
3. Sacral decubitus stage I, present on admission
-continue wound care
History of chronic lymphocytic leukemia
Hyperlipidemia
Paroxysmal atrial fibrillation-anticoagulation discontinued on recent admission due to risk benefit
Vitamin D deficiency
Hyperparathyroidism status post parathyroidectomy 2018
Lovenox for DVT prophylaxis
CODE STATUS DNR
Patient discharged in the morning although Manish contacted back that bed not available, will need to be held in hospital one more night.
Anticipated Discharge: Within 24 hours
Subjective/Interval History
-
Date of Service: August 04, 2024
Resting comfortably in bed
Left leg cellulitis significantly better
Objective Data
-
Labs:
Laboratory Results
08/04/24
06:11
WBC 8.0
Hgb 10.6 L
Hct 30.9 L
Plt Count 206
Sodium 141
Potassium 4.2
Chloride 103
Carbon Dioxide 26
BUN 18 H
Creatinine 0.8
Glucose 82
Calcium 8.8
Vital Signs:
Vital Signs
Temp Pulse Resp BP Pulse Ox
98.2 F 64 16 147/71 97
08/04/24 07:00 08/04/24 08:25 08/04/24 07:00 08/04/24 08:25 08/04/24 07:00
I&O
08/03/24 08/04/24 08/05/24
06:59 06:59 06:59
Intake Total 720 / 720 810 / 810
Balance 720 / 720 810 / 810
Review of Systems
-
Respiratory: Reports No Symptoms
Cardiac: Reports No Symptoms
Abdomen/GI: Reports No Symptoms
Physical Exam
-
General: Negative Appears in Distress
HEENT: Negative Oxygen
Respiratory: Clear to Auscultation
Cardiac: Regular Rhythm and S1/S2; Negative Murmur
GI: Soft, Nontender and Nondistended
Musculoskeletal: Other (Left leg surgical site - erthyema improved )
Neuro: Awake and Alert
[2024-08-04 15:00] VITALS: BP 129/70
--- NOTE | 2024-08-04 15:06 | CM ---
no bed at [facility] today since it was needed for a covid patient.patient now going to [facility] for 3 days then tx to [facility].i called asad and changed auth to [facility].i gave melanie the auth number.i called son anshul to confirm.i alerted
attending.
phone number for report : [phone] fax:[phone].
[2024-08-04] MEDS: LOVENOX 40 MG SC (17:02)
[2024-08-04 18:24] VITALS: BP 146/67
== END 2024-08-04 18:47 | DRG 603 ==
LOC: 3 WEST ACU 17:48
PROVIDERS: Hospitalist; Student in an Organized Health Care Education/Training Program; ADMITTING PHYSICIAN Hospitalist; ATTENDING PHYSICIAN Internal Medicine; EMERGENCY PHYSICIAN Emergency Medicine; FAMILY PHYSICIAN Internal Medicine; OTHER PHYSICIAN Student in an Organized Health Care Education/Training Program
DX: L03.116 Cellulitis of left lower limb (principal); C91.10 Chronic lymphocytic leukemia of B-cell type not having achieved remission; F02.83 Dementia in other diseases classified elsewhere, unspecified severity, with mood disturbance; G30.9 Alzheimer's disease, unspecified; F32.A Depression, unspecified; L89.151 Pressure ulcer of sacral region, stage 1; B95.62 Methicillin resistant Staphylococcus aureus infection as the cause of diseases classified elsewhere; I48.0 Paroxysmal atrial fibrillation; E78.00 Pure hypercholesterolemia, unspecified; Z66 Do not resuscitate; K21.9 Gastro-esophageal reflux disease without esophagitis; M19.90 Unspecified osteoarthritis, unspecified site; E55.9 Vitamin D deficiency, unspecified; E89.2 Postprocedural hypoparathyroidism; Z79.899 Other long term (current) drug therapy; Z91.81 History of falling; Z87.440 Personal history of urinary (tract) infections; Z87.39 Personal history of other diseases of the musculoskeletal system and connective tissue; Z88.0 Allergy status to penicillin; Z88.8 Allergy status to other drugs, medicaments and biological substances
CPT/HCPCS: 70030; 71046; 73701; 73718; 74018; 80048; 80053; 80202; 85025; 85027; 87040; 87070; 87147; 87186; 87205; 97116; 97163; 97167; 97535; 99285; Q9967

== ENCOUNTER → 2024-08-15 15:14 | Outpatient (REF) | payer OTHER, SELFPAY ==
[2024-08-15 16:53] LABS: Hematocrit 32.7 % (37.0-47.0); Hemoglobin 10.8 g/dL (12.0-16.0); Mean Corpuscular Hgb 32.4 pg (27.0-31.0); Mean Corpuscular Volume 98.2 fL (81.0-99.0); Platelet Count 243 10^3/uL (130-400); Red Blood Cell Count 3.33 10^6/uL (4.20-5.40); Red Cell Dist. Width 14.6 % (11.5-14.5); White Blood Cell Count 8.2 10^3/uL (4.8-10.8)
[2024-08-15 17:32] LABS: ALT (SGPT) 21 U/L (0-35); AST (SGOT) 24 U/L (14-36); Albumin 3.4 g/dl (3.5-5.0); Alkaline Phosphatase 94 U/L (38-126); Blood Urea Nitrogen 23 mg/dl (7-17); Calcium 8.6 mg/dl (8.4-10.2); Carbon Dioxide 26 mmol/L (22-30); Chloride 101 mmol/L (98-107); Glucose 78 mg/dl (70-99); Magnesium 2.1 mg/dl (1.6-2.3); Potassium 4.3 mmol/L (3.5-5.1); Sodium 137 mmol/L (135-145); Total Bilirubin 0.6 mg/dl (0.2-1.3); Total Protein 5.4 g/dl (6.3-8.2); eGFR > 60.00
== END ==
LOC: OLABWHC 15:14
PROVIDERS: ATTENDING PHYSICIAN Family Medicine
DX: L03.119 Cellulitis of unspecified part of limb (principal); N39.0 Urinary tract infection, site not specified; M17.10 Unilateral primary osteoarthritis, unspecified knee; I48.0 Paroxysmal atrial fibrillation; C91.10 Chronic lymphocytic leukemia of B-cell type not having achieved remission; L89.153 Pressure ulcer of sacral region, stage 3
CPT/HCPCS: 36415; 80053; 83735; 85027

== ENCOUNTER → 2025-01-23 10:49 | Outpatient (REF) | payer OTHER, SELFPAY ==
[2025-01-23 12:42] LABS: ALT (SGPT) 14 U/L (0-35); AST (SGOT) 23 U/L (14-36); Albumin 3.2 g/dl (3.5-5.0); Alkaline Phosphatase 97 U/L (38-126); Direct Bilirubin 0.2 mg/dl (0.0-0.4); Total Protein 5.2 g/dl (6.3-8.2)
[2025-01-24 09:22] LABS: Free T4 1.54 ng/dl (0.78-2.19)
== END ==
LOC: OLABWHC 10:49
PROVIDERS: ATTENDING PHYSICIAN Registered Nurse; FAMILY PHYSICIAN Family Medicine
DX: I48.0 Paroxysmal atrial fibrillation (principal); Z79.01 Long term (current) use of anticoagulants; E44.0 Moderate protein-calorie malnutrition; E78.5 Hyperlipidemia, unspecified; K21.9 Gastro-esophageal reflux disease without esophagitis; C91.10 Chronic lymphocytic leukemia of B-cell type not having achieved remission
CPT/HCPCS: 36415; 80076; 84439; 84443

== ENCOUNTER → 2025-03-07 09:24 | Outpatient (REF) | payer OTHER, SELFPAY ==
[2025-03-07 12:14] LABS: Free T4 1.43 ng/dl (0.78-2.19)
== END ==
LOC: OLABWHC 09:24
PROVIDERS: ATTENDING PHYSICIAN Family Medicine
DX: I48.0 Paroxysmal atrial fibrillation (principal); C91.10 Chronic lymphocytic leukemia of B-cell type not having achieved remission
CPT/HCPCS: 36415; 84439; 84443

== ENCOUNTER → 2025-04-07 13:34 | Outpatient (REF) | payer OTHER, SELFPAY ==
[2025-04-07 14:24] LABS: Free T4 1.97 ng/dl (0.78-2.19)
[2025-04-07 14:38] LABS: TSH 4.38 uIU/ml (0.47-4.68)
== END ==
LOC: OLABWHC 13:34
PROVIDERS: ATTENDING PHYSICIAN Family Medicine
DX: E03.8 Other specified hypothyroidism (principal)
CPT/HCPCS: 36415; 84439; 84443

== ENCOUNTER → 2025-07-18 11:45 | Outpatient (REF) | payer OTHER, SELFPAY ==
[2025-07-18 13:13] LABS: Hematocrit 35.8 % (37.0-47.0); Hemoglobin 11.4 g/dL (12.0-16.0); Mean Corp Hgb Conc. 31.8 g/dL (33.0-37.0); Mean Corpuscular Volume 97.3 fL (81.0-99.0); Platelet Count 198 10^3/uL (130-400); Red Cell Dist. Width 13.5 % (11.5-14.5)
[2025-07-18 13:35] LABS: ALT (SGPT) 15 U/L (0-35); AST (SGOT) 20 U/L (14-36); Albumin 3.6 g/dl (3.5-5.0); Alkaline Phosphatase 82 U/L (38-126); Blood Urea Nitrogen 28 mg/dl (7-17); Calcium 9.0 mg/dl (8.4-10.2); Carbon Dioxide 28 mmol/L (22-30); Chloride 107 mmol/L (98-107); Glucose 74 mg/dl (70-99); HDL Cholesterol 90 mg/dl; LDL Cholesterol, Calculated 73 mg/dl; Magnesium 2.4 mg/dl (1.6-2.3); Potassium 4.4 mmol/L (3.5-5.1); Sodium 137 mmol/L (135-145); Total Protein 5.5 g/dl (6.3-8.2); Very Low Density Lipoprotein 12 mg/dl (0-30); eGFR > 60.00
== END ==
LOC: OLABWHC 11:45
PROVIDERS: ATTENDING PHYSICIAN Family Medicine
DX: M62.81 Muscle weakness (generalized) (principal); E03.8 Other specified hypothyroidism; C91.10 Chronic lymphocytic leukemia of B-cell type not having achieved remission; I48.0 Paroxysmal atrial fibrillation; E78.5 Hyperlipidemia, unspecified
CPT/HCPCS: 36415; 80053; 80061; 83735; 85027